=== PATIENT | female | born 1950 | race Caucasian/White ===

== ENCOUNTER 2016-06-03 08:10 | Emergency (ER) | payer MEDICARE, OTHER ==
[~2016-06-03] VITALS: Ht 162.6 cm; Wt 53.5 kg
--- NOTE | 2016-06-03 09:05 | RAD ---
Exam performed: X-ray right knee and right ankle. History: Patient twisted knee while getting out of the truck today. Date of service: . Comparison: X-rays standing AP bilateral knees from 06/29/14 3 views right knee findings: There is probable mild depression of the lateral tibial left to with narrowing of the lateral tibiofemoral joint. There is also narrowing of the patellofemoral joint with arthritic spurring. There is mild soft tissue swelling. Small joint effusion. Impression: 1. Mild narrowing of the lateral tibiofemoral joint with mild depression of the lateral tibial plateau. The acuity of these findings is not clear and could be related to chronic changes. Correlate with patient's symptoms and if indicated evaluation with CT or MRI of the right knee may be of additional benefit to rule out acute fracture. End impression. Right ankle 3 views findings: Normal alignment of the ankle mortise is preserved. There is no acute fracture or dislocation. No soft tissue swelling or joint effusion seen. Impression: 1. No acute abnormality seen in the right ankle.
[2016-06-03 10:05] VITALS: BP 135/63
[2016-06-03] MEDS ORDERED: DIPHTH,PERTUSS(ACELL),TET TOX 0.5 ML DISP.SYRIN. VAX IM ONE (10:15)
--- NOTE | 2016-06-03 10:20 | PHYS DOC ---
Past Medical History Past Medical History: Arthritis, High Cholesterol, Hypertension Past Surgical History: Hysterectomy, Other Additional Past Surgical Histo: PHILOMENA FOOT SX, R ROTATOR CUFF SX Alcohol Use: None Drug Use: None Adult General Chief Complaint Chief Complaint: MECHANICAL FALL HPI HPI Patient is a 66 year old female presents emergency department stating that she went to get out of the truck today when she twisted her right knee. She states that she has increased pain and discomfort when she tries to stand on the right leg. Patient states that she does have nerve damage. She does have good peripheral pulses are 2+ bilaterally. Patient does have good sensation noted. Patient does have increased tenderness and pain along the lateral and along the anterior portion of the the knee. There is no bruising or discoloration noted. Patient does have a abrasion noted on her right hand. Patient is unsure when her last tetanus immunization occurred. Review of Systems Review of Systems Constitutional: Denies fever or chills [] Eyes: Denies change in visual acuity, redness, or eye pain [] HENT: Denies nasal congestion or sore throat [] Respiratory: Denies cough or shortness of breath [] Cardiovascular: No additional information not addressed in HPI [] GI: Denies abdominal pain, nausea, vomiting, bloody stools or diarrhea [] : Denies dysuria or hematuria [] Musculoskeletal: Denies back pain. Right knee pain and discomfort Integument: Denies rash or skin lesions. abrasion to right hand[] Neurologic: Denies headache, focal weakness or sensory changes [] Physical Exam Physical Exam Constitutional: Well developed, well nourished, no acute distress, non-toxic appearance. [] HENT: Normocephalic, atraumatic, bilateral external ears normal, oropharynx moist, no oral exudates, nose normal. [] Eyes: PERRLA, EOMI, conjunctiva normal, no discharge. [] Neck: Normal range of motion, no tenderness, supple, no stridor. [] Cardiovascular:Heart rate regular rhythm Lungs & Thorax: no respiratory distress noted Skin: Warm, dry, no erythema, no rash. Abrasion noted to right hand Extremities: Right knee tenderness noted on the lateral side of the knee and anterior area just below the knee, no cyanosis, no clubbing, ROM intact, no edema. No bruising or discoloration noted. Patient with increased discomfort when trying to straighten the leg. Peripheral pulses are 2+ cap refill brisk less than 2 seconds. Neurologic: Alert and oriented X 3, normal motor function, normal sensory function, no focal deficits noted. [] Psychologic: Affect normal, judgement normal, mood normal. [] Current Patient Data Vital Signs Vital Signs Date Time Temp Pulse Resp B/P Pulse Ox O2 Delivery O2 Flow Rate FiO2 06/03/16 10:05 98.0 100 16 95 Room Air 98.0 EKG EKG [] Radiology/Procedures Radiology/Procedures [][facility] [address] [place] [address] IMAGING REPORT Signed PATIENT: JENNIFER PACE ACCOUNT: [id number] : 1950 LOCATION: ER AGE: 66 SEX: F EXAM [id number] STATUS: REG ER ORD. PHYSICIAN: VEENA CALL NP REASON: twisted knee and lower leg getting out of truck today PROCEDURE: ANKLE RIGHT 3V; KNEE RIGHT 3V Exam performed: X-ray right knee and right ankle. History: Patient twisted knee while getting out of the truck today. Date of service: . Comparison: X-rays standing AP bilateral knees from 06/29/14 3 views right knee findings: There is probable mild depression of the lateral tibial left to with narrowing of the lateral tibiofemoral joint. There is also narrowing of the patellofemoral joint with arthritic spurring. There is mild soft tissue swelling. Small joint effusion. Impression: 1. Mild narrowing of the lateral tibiofemoral joint with mild depression of the lateral tibial plateau. The acuity of these findings is not clear and could be related to chronic changes. Correlate with patient's symptoms and if indicated evaluation with CT or MRI of the right knee may be of additional benefit to rule out acute fracture. End impression. Right ankle 3 views findings: Normal alignment of the ankle mortise is preserved. There is no acute fracture or dislocation. No soft tissue swelling or joint effusion seen. Impression: 1. No acute abnormality seen in the right ankle. DICTATED and SIGNED BY: MARIA EUGENIA ÁLVAREZ MD DATE: 06/03/16 0856 CC: VEENA CALL NP; SEDRICK CLEMONS MD ~ Course & Med Decision Making Course & Med Decision Making Pertinent Labs and Imaging studies reviewed. (See chart for details) X-ray was negative for ankle abnormality. X-ray for the knee shows mild narrowing of the lateral tibiofemoral joint with mild depression of the lateral tibial plateau. The acuity of these findings are not clear according to the radiologist and could be related to chronic changes only do recommend a CT or an MRI of the right knee for additional benefits to rule out fracture. Patient will be placed in a knee immobilizer. Follow-up with orthopedic. Patient states that once we had straighten her knee on she was able to put her foot on the ground she states the pain decreased. Patient was recommended to take ibuprofen [id number] for pain and discomfort ice packs on 20 minutes off 20 minutes several times a day. She'll be provided with Dr. Parker's name and number to follow up with. Signs and symptoms to return back to emergency department as been provided. [] Dragon Disclaimer Dragon Disclaimer This electronic medical record was generated, in whole or in part, using a voice recognition dictation system. Departure Departure Impression: Primary Impression: Knee pain, right Additional Impression: Abrasion of right hand Disposition: 01 HOME, SELF-CARE Condition: STABLE Referrals: SEDRICK CLEMONS MD (PCP) MICKY MERLOS II, MD Patient Instructions: Abrasion, [id number], Knee Immobilizer, [id number], Knee Pain, [id number] Additional Instructions: Activity as tolerated. Wear the knee immobilizer whenever you are up ambulating. Ice packs on 20 minutes off 20 minutes several times a day. Elevation as much as possible. Tylenol or ibuprofen for pain and discomfort. Follow-up with orthopedic within the next week. Return to the emergency department sign symptoms of become worse. Problem Qualifiers VEENA CALL NP Jun 03, 2016 10:20
[2016-06-03] MEDS ORDERED: AMLO5TAB2 PO (19:29)
[2016-06-03] MEDS ORDERED: PRAV40TA2 PO (19:29)
[2016-06-03] MEDS ORDERED: LISI10TA2 PO (19:29)
[2016-06-03] MEDS ORDERED: ZOLP5TAB PO (19:29)
== END 2016-06-03 10:55 | disposition home or self-care (01) ==
LOC: ER 08:10
DX: S60.511A Abrasion of right hand, initial encounter (principal); M25.561 Pain in right knee; M19.90 Unspecified osteoarthritis, unspecified site; E78.00 Pure hypercholesterolemia, unspecified; I10 Essential (primary) hypertension; Z90.710 Acquired absence of both cervix and uterus; X58.XXXA Exposure to other specified factors, initial encounter; Y93.89 Activity, other specified; Y92.89 Other specified places as the place of occurrence of the external cause; Y99.8 Other external cause status
CPT/HCPCS: 29505; 73562; 73610; 90471; 90715; 99284-25

== ENCOUNTER 2016-06-03 12:21 | Inpatient (IN) | payer MEDICARE, OTHER ==
[~2016-06-03] VITALS: Ht 162.6 cm; Wt 49.9 kg
--- NOTE | 2016-06-03 13:25 | PHYS DOC ---
Past Medical History Past Medical History: Arthritis, High Cholesterol, Hypertension Past Surgical History: Hysterectomy, Other Additional Past Surgical Histo: PHILOMENA FOOT SX, R ROTATOR CUFF SX Alcohol Use: None Drug Use: None Adult General Chief Complaint Chief Complaint: DIZZY/LIGHT HEADED [facility] HPI Patient is a 66 year old female who presents by EMS for her presyncopal event. She was trying to get out of car after leaving the emergency department. She moved her right leg and had an episode of severe pain. This was followed by nausea, lightheadedness, and full body flush sensation. This resolves shortly. Her friend called EMS to bring her back to the hospital. She was seen this morning for right knee pain with suspected tibial plateau fracture. At that time , her pain was controlled and she wanted to go home. She now feels this was ambitious. She denies chest pain, numbness, tingling, focal weakness. Review of Systems Review of Systems Constitutional: Denies fever or chills [] Eyes: Denies change in visual acuity, redness, or eye pain [] HENT: Denies nasal congestion or sore throat [] Respiratory: Denies cough or shortness of breath [] Cardiovascular: No additional information not addressed in HPI [] GI: Denies abdominal pain, nausea, vomiting, bloody stools or diarrhea [] : Denies dysuria or hematuria [] Musculoskeletal: Denies back pain [] Integument: Denies rash or skin lesions [] Neurologic: Denies headache, focal weakness or sensory changes [] Endocrine: Denies polyuria or polydipsia [] Allergies Allergies Allergies Coded Allergies Type Severity Reaction Last Updated Verified No Known Drug Allergies 06/03/16 No Physical Exam Physical Exam Constitutional: Well developed, well nourished, no acute distress, non-toxic appearance. [] HENT: Normocephalic, atraumatic, bilateral external ears normal, oropharynx moist, no oral exudates, nose normal. [] Eyes: PERRLA, EOMI. [] Neck: Normal range of motion, supple. [] Cardiovascular:Heart rate regular rhythm [] Lungs & Thorax: Bilateral breath sounds clear to auscultation [] Abdomen: Bowel sounds normal, soft, no tenderness. [] Skin: Warm, dry, no erythema, no rash. [] Back: Normal range of motion. [] Extremities: No obvious deformity or discoloration; has tenderness to lateral knee with no palpable abnormality; Able to flex/ex/IR/ER hip, knee rom not tested due to pain and suspected fracture, ankle df/pf, toes df/pf; sensation intact to light touch; dp pulses equal bilaterally Neurologic: Alert and oriented X 3, normal motor function, normal sensory function, no focal deficits noted. [] Psychologic: Affect normal, judgement normal, mood normal. [] Current Patient Data Vital Signs Vital Signs Date Time Temp Pulse Resp B/P Pulse Ox O2 Delivery O2 Flow Rate FiO2 06/03/16 12:25 97.8 95 18 141/61 96 Room Air 97.8 EKG EKG EKG as interpreted by me as normal sinus rhythm, rate 89, no ST-T changes, normal intervals, no ectopy Course & Med Decision Making Course & Med Decision Making Pertinent Labs and Imaging studies reviewed. (See chart for details) She is unable to ambulate under her own power and is found to have right lateral tibial plateau fracture. Will admit for further workup. Discussed case with Dr. Jacob, who recommends orthopedic consult for fracture and cardiology consult for presyncope. Dragon Disclaimer Dragon Disclaimer This electronic medical record was generated, in whole or in part, using a voice recognition dictation system. Departure Departure Impression: Primary Impression: Closed fracture of right tibial plateau Disposition: ADMITTED INPATIENT Condition: STABLE Referrals: SEDRICK JACOB MD (PCP) Problem Qualifiers Primary Impression: Closed fracture of right tibial plateau Encounter type: initial encounter Qualified Code: S82.141A - Displaced bicondylar fracture of right tibia, initial encounter for closed fracture Jose Roberto PAIGE MD Jun 03, 2016 13:24
[2016-06-03 13:53] LABS: BASO # 0.1 x10^3/uL (0.0-0.2); BASO % 1 % (0-3); EOS % 0 % (0-3); HEMATOCRIT 40.1 % (36.0-47.0); HEMOGLOBIN 13.6 g/dL (12.0-15.5); LYMPH # 1.2 x10^3/uL (1.0-4.8); LYMPH % 7 % (24-48); MEAN CORPUSCULAR HEMOGLOBIN 33 pg (25-35); MEAN CORPUSCULAR HGB CONC 34 g/dL (31-37); MEAN CORPUSCULAR VOLUME 98 fL (79-100); MONO % 7 % (0-9); NEUT % 85 % (31-73); PLATELET COUNT 175 x10^3/uL (140-400); WHITE BLOOD COUNT 16.4 x10^3/uL (4.0-11.0)
--- NOTE | 2016-06-03 14:22 | RAD ---
Exam performed: CT left knee. History: Left knee pain and inability to bear weight status post fall 2 days ago. Date of service: 06/03/16. Comparison: None available Technique: Contiguous helical acquisitions are obtained through the right knee without IV contrast. Sagittal and coronal reformatted images are obtained and reviewed. Findings: There is a comminuted depressed fracture lateral tibial plateau. Spiking of the tibial spines is seen. The medial tibiofemoral joint is preserved. There is osteophytic spurring emanating from the articular surface of the patella with mild narrowing of the patellofemoral joint small joint effusion. No foreign body. No intramuscular hematoma or soft tissue swelling is identified. Impression: 1. Comminuted intra-articular fracture lateral tibial plateau with soft tissue swelling and a small joint effusion. PQRS Compliance Statement: One or more of the following individualized dose reduction techniques were utilized for this examination: 1. Automated exposure control 2. Adjustment of the mA and/or kV according to patient size 3. Use of iterative reconstruction technique
[2016-06-03] MEDS ORDERED: ACETAMINOPHEN 325 MG TABLET. PO PRN ×2 (14:30→17:30)
[2016-06-03 14:38] LABS: CALCIUM 9.9 mg/dL (8.5-10.1); CREATININE 0.8 mg/dL (0.6-1.0); GFR 71.5; POTASSIUM 4.8 mmol/L (3.5-5.1)
--- NOTE | 2016-06-03 14:58 | EKG ---
[facility] [address] [place] [address] Test Date: 2016-06-03 Test Time: 13:36:21 Pat Name: JENNIFER PACE Department: Room: 404 Gender: F Damper Maker: : 1950 Requested By: Jose Roberto PAIGE Order Number: [id number] Reading MD: Meño Gresham Measurements Intervals [place] Rate: 89 P: 45 CA: 146 QRS: 77 QRSD: 80 T: 67 QT: 344 QTc: 420 Interpretive Statements SINUS RHYTHM MILD NONSPECIFIC ST-T WAVE CHANGES. Electronically Signed On 06-10-2016 10:34:33 [employer] DIRECTOR by Meño Gresham
--- NOTE | 2016-06-03 15:16 | PDOC ---
ORTHO PROGRESS NOTES Vitals Vital Signs Date Time Temp Pulse Resp B/P Pulse Ox O2 Delivery O2 Flow Rate FiO2 06/03/16 13:34 102 157/80 06/03/16 13:22 30 95 Room Air 06/03/16 12:25 97.8 97.8 Labs Laboratory Tests Test 06/03/16 13:45 06/03/16 14:10 White Blood Count 16.4x10^3/uL (4.0-11.0) Red Blood Count 4.10x10^6/uL (3.50-5.40) Hemoglobin 13.6g/dL (12.0-15.5) Hematocrit 40.1% (36.0-47.0) Mean Corpuscular Volume 98fL (79-100) Mean Corpuscular Hemoglobin 33pg (25-35) Mean Corpuscular Hemoglobin Concent 34g/dL (31-37) Red Cell Distribution Width 14.0% (11.5-14.5) Platelet Count 175x10^3/uL (140-400) Neutrophils (%) (Auto) 85% (31-73) Lymphocytes (%) (Auto) 7% (24-48) Monocytes (%) (Auto) 7% (0-9) Eosinophils (%) (Auto) 0% (0-3) Basophils (%) (Auto) 1% (0-3) Neutrophils # (Auto) 13.9x10^3uL (1.8-7.7) Lymphocytes # (Auto) 1.2x10^3/uL (1.0-4.8) Monocytes # (Auto) 1.2x10^3/uL (0.0-1.1) Eosinophils # (Auto) 0.0x10^3/uL (0.0-0.7) Basophils # (Auto) 0.1x10^3/uL (0.0-0.2) Sodium Level 143mmol/L (136-145) Potassium Level 4.8mmol/L (3.5-5.1) Chloride Level 106mmol/L (98-107) Carbon Dioxide Level 28mmol/L (21-32) Anion Gap 9 (6-14) Blood Urea Nitrogen 11mg/dL (7-20) Creatinine 0.8mg/dL (0.6-1.0) Estimated GFR (Cockcroft-Gault) 71.5 Glucose Level 135mg/dL (70-99) Calcium Level 9.9mg/dL (8.5-10.1) Laboratory Tests Test 06/03/16 13:45 06/03/16 14:10 White Blood Count 16.4x10^3/uL (4.0-11.0) Red Blood Count 4.10x10^6/uL (3.50-5.40) Hemoglobin 13.6g/dL (12.0-15.5) Hematocrit 40.1% (36.0-47.0) Mean Corpuscular Volume 98fL (79-100) Mean Corpuscular Hemoglobin 33pg (25-35) Mean Corpuscular Hemoglobin Concent 34g/dL (31-37) Red Cell Distribution Width 14.0% (11.5-14.5) Platelet Count 175x10^3/uL (140-400) Neutrophils (%) (Auto) 85% (31-73) Lymphocytes (%) (Auto) 7% (24-48) Monocytes (%) (Auto) 7% (0-9) Eosinophils (%) (Auto) 0% (0-3) Basophils (%) (Auto) 1% (0-3) Neutrophils # (Auto) 13.9x10^3uL (1.8-7.7) Lymphocytes # (Auto) 1.2x10^3/uL (1.0-4.8) Monocytes # (Auto) 1.2x10^3/uL (0.0-1.1) Eosinophils # (Auto) 0.0x10^3/uL (0.0-0.7) Basophils # (Auto) 0.1x10^3/uL (0.0-0.2) Sodium Level 143mmol/L (136-145) Potassium Level 4.8mmol/L (3.5-5.1) Chloride Level 106mmol/L (98-107) Carbon Dioxide Level 28mmol/L (21-32) Anion Gap 9 (6-14) Blood Urea Nitrogen 11mg/dL (7-20) Creatinine 0.8mg/dL (0.6-1.0) Estimated GFR (Cockcroft-Gault) 71.5 Glucose Level 135mg/dL (70-99) Calcium Level 9.9mg/dL (8.5-10.1) Assessment and Plan note dictated MICKY MERLOS II, MD Jun 03, 2016 15:16
[2016-06-03] MEDS: FENTANYL PF 100 MCG/2 ML VIAL. IV PRN ×2 (16:31→19:27)
[2016-06-03 17:07] LABS: HYPOCHROMIA SLIGHT; OVALOCYTES OCC; PLT ESTIMATE ADEQUATE (ADEQUATE); POLYCHROMASIA SLIGHT
[2016-06-03] MEDS ORDERED: MAGNESIUM HYDROXIDE 2,400 MG/30 ML ORAL.SUSP. PO PRN (17:30)
[2016-06-03] MEDS ORDERED: FENTANYL PF 100 MCG/2 ML VIAL. IM PRN (17:30)
--- NOTE | 2016-06-03 17:37 | PDOC ---
Provider Note Provider Note history and physical dictated # [id number] SEDRICK CLEMONS MD Jun 03, 2016 17:36
[2016-06-03] MEDS: HYDROCODONE/APAP 5/325MG TABLET. PO PRN (17:47)
[2016-06-03] MEDS ORDERED: ENOXAPARIN 40 MG/0.4 ML DISP.SYRIN. SQ ONE (18:00)
[2016-06-03 19:10] VITALS: BP 174/74
[2016-06-03] MEDS ORDERED: ZOLP5TAB PO (19:29)
[2016-06-03] MEDS ORDERED: PRAV40TA2 PO (19:29)
[2016-06-03] MEDS ORDERED: LISI10TA2 PO (19:29)
[2016-06-03] MEDS ORDERED: AMLO5TAB2 PO (19:29)
--- NOTE | 2016-06-03 19:34 | HP ---
ADMIT DATE: 06/03/2016 The patient is in room 404. HISTORY OF PRESENT ILLNESS: The patient is a 66-year-old white female with history of hypertension, hyperlipidemia, peripheral arterial disease, who was getting out of the truck earlier today and had noted a twisting in her left leg and developed pain in her left knee area and sought help at the [facility] Emergency Room this morning where she was felt to have a suspected left tibial plateau fracture. Her leg apparently was splinted and she was sent home and she was getting out of the car at home, she again hurt her neck and felt very flushed and dizzy and lightheaded for a period of time and eventually resolved. She then went back to the [facility] Emergency Room where she had a CAT scan of the left leg, which showed that she had a comminuted intraarticular fracture involving the lateral tibial plateau with soft tissue swelling and a small joint effusion. The patient was subsequently admitted to the hospital for further evaluation. She did have an EKG done. She is presently eating dinner and she did receive some IV fentanyl, which helped with her knee pain. She is presently comfortable. She denies any chest pain or shortness of breath. She is therefore admitted for further evaluation of her left knee fracture and also a near syncopal episode. When she got out of the truck initially, she twisted her left knee and actually fell down. ALLERGIES AND INTOLERANCES: Sertraline caused tremors. Wellbutrin caused confusion. Simvastatin caused myalgias. MEDICATIONS: Prior to admission include amlodipine 5 mg every day, lisinopril 10 mg every day, aspirin 325 mg every day, pravastatin 40 mg every day. PAST MEDICAL HISTORY: Significant for hypertension, hyperlipidemia, peripheral arterial disease. She was seen by vascular surgeon, Dr. Roach couple of months ago and was treated medically. She was encouraged to quit smoking cigarettes. She has a history of sinus tachycardia. She has had a benign right breast biopsy, left rotator cuff repair in 2008, hysterectomy and bilateral salpingo-oophorectomy for an ovarian cyst. SOCIAL HISTORY: She does not drink alcohol. Smokes about 5 cigarettes a day. She is retired, . FAMILY HISTORY: Remarkable that her father had pancreatic cancer. Mother had alcoholism. REVIEW OF SYSTEMS: GENERAL: There has been no fever, chills or sweats in the last 3 days. CARDIOVASCULAR: No chest pain. PULMONARY: No cough or shortness of breath. GASTROINTESTINAL: She had some loose stools. ENDOCRINE: No diabetes mellitus. SKIN: No rashes. The rest of systems reviewed are negative except as stated in history of present illness. PHYSICAL EXAMINATION: VITAL SIGNS: Temperature 97.8 degrees, apical pulse 102, respiratory rate is 20, blood pressure 157/80. Oxygen saturation 95% on room air. HEENT: Eyes: Gaze is conjugate. Mouth: Tongue is midline. NECK: There is no cervical lymphadenopathy or thyroid enlargement. HEART: Reveals an S1, S2. There is no S3 or murmur. LUNGS: Clear with decreased breath sounds bilaterally. ABDOMEN: Soft, nontender. EXTREMITIES: Lower extremities, she has got a splint in the right lower extremity. SKIN: No rashes. Examination of her right foot, I cannot appreciate any ulcers, but there is no gangrene. NEUROLOGIC: She is coherent. 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 Right leg is in a splint. She did receive a dose of Lovenox in the Emergency Room earlier today. LABORATORY DATA: Sodium 143, potassium 4.8, chloride 106, total CO2 of 28 with a BUN of 11, creatinine 0.8, blood sugar 135, nonfasting with a white count is 16.4, hemoglobin 13.6, platelet count 175,000, lymphocytes. ASSESSMENT: 1. Left tibial plateau fracture. 2. Near syncopal episode, most likely due to vasovagal reaction. 3. Hypertension. 4. Hyperlipidemia. 5. Peripheral arterial disease. 6. Leukocytosis. PLAN: At this time is to consult Dr. Oswald who has seen the patient already although his dictation is not on the chart at this point and we will continue with the splinting of the left leg. We will also recheck her CBC in the morning. We will resume her amlodipine, lisinopril and aspirin and obtain a consult with Dr. Yao for Cardiology. Repeat the CBC in the morning ordered echocardiogram, chest x-ray, protime and INR and CMP for tomorrow also. SEDRICK CLEMONS MD DR: FLEX/amanda JOB#: [id number] / [id number]
--- NOTE | 2016-06-03 19:56 | PDOC2 ---
CONSULT Date of Consult Date of Consult DATE: 06/03/16 TIME: 19:47 Reason for Consult Reason for Consult: Near syncope Referring Physician Referring Physician: Dr. Jacob Identification/Chief Complaint Chief Complaint Leg fracture History of Present Illness Reason for Visit: This patient is a 66-year-old lady that has a known history of hypertension, hyperlipidemia, peripheral vascular disease, and COPD. She is a current smoker. The patient had an injury to the right knee and came to the emergency room and after she was seen and evaluated and was felt that she may have a tibial plateau fracture but the patient did not want to stay in the hospital and a brace was placed on the leg and she went home when she arrived home as she tried to turn her leg to get out of the car she felt very hot and sweaty short of breath and lightheaded with extreme pain. Because of that she was brought back to the emergency room which she was seen and evaluated and he was decided to admit her. The patient agrees with this approach at this time. At the time that I saw her she was complaining of pain to the knee denies any dyspnea, denies any palpitations, denies any chest pains. The patient denies having any previous cardiac problems. She denies loss of consciousness but stated that with the pain she felt quite lightheaded but that she did not pass out. Past Medical History Cardiovascular: HTN, Hyperlipidemia, Other (peripheral vascular disease) Pulmonary: COPD GI: GERD Current Problem List Problem List Problems Medical Problems: (1) Closed fracture of right tibial plateau Status: Acute (2) Knee pain, right Status: Acute (3) Right knee pain Status: Acute Current Medications Current Medications Current Medications Fentanyl Citrate (Fentanyl 2ml Vial) 50 mcg PRN Q2HR PRN IV PAIN Last administered on 06/03/16 19:27; Start 06/03/16 at 14:30; Stop 06/04/16 at 14:29 Acetaminophen (Tylenol) 650 mg PRN Q4HRS PRN PO FEVER; Start 06/03/16 at 14:30 ; Stop 06/04/16 at 14:29 Enoxaparin Sodium (Lovenox 40mg Syringe) 40 mg 1X ONCE SQ Last administered on 06/03/16 17:47; Start 06/03/16 at 18:00; Stop 06/03/16 at 18:01; Status DC Fentanyl Citrate (Fentanyl 2ml Vial) 50 mcg Q4HRS PRN IM SEVERE PAIN; Start at 17:30 Acetaminophen/ Hydrocodone Bitart (Lortab 5/325) 1 tab PRN Q4HRS PRN PO PAIN Last administered on 06/03/16t 17:47; Start 06/03/16 at 17:30 Magnesium Hydroxide (Milk Of Magnesia) 2,400 mg PRN DAILY PRN PO CONSTIPATION; Start 06/03/16 at 17:30 Amlodipine Besylate (Norvasc) 5 mg DAILY PO ; Start 06/04/16 at 09:00 Lisinopril (Prinivil) 10 mg DAILY PO ; Start 06/04/16 at 09:00 Acetaminophen (Tylenol) 650 mg Q4HRS PRN PO MILD PAIN / TEMP; Start 06/03/16 at 17:30 Aspirin (Elis Aspirin) 325 mg DAILYWBKFT PO ; Start 06/04/16 at 08:00 Zolpidem Tartrate (Ambien) 5 mg PRN QHS PRN PO INSOMNIA; Start 06/03/16 at 17: 45 Active Scripts Active Reported Ambien (Zolpidem Tartrate) 5 Mg Tablet 1 Tab PO PRN QHS PRN Lisinopril 10 Mg Tablet 10 Mg PO HS Amlodipine Besylate 5 Mg Tablet 5 Mg PO HS Pravastatin Sodium 40 Mg Tablet 40 Mg PO HS Allergies Allergies: Coded Allergies: No Known Drug Allergies (Unverified , 06/03/16) Physical Exam Physical Exam The patient was in mild distress at the time of the examination and she was complaining of pain to the knee. H EENT pupils are reactive. Oral mucosa well-hydrated. Neck is supple no JVD. Lungs are clear. Heart regular rate and rhythm normal S1 normal S2 no S3 no S4 no rubs no clicks no murmurs. Abdomen is soft bowel sounds are present. Extremities brace present on the right leg. No edema. Vitals VITALS Vital Signs Date Time Temp Pulse Resp B/P Pulse Ox O2 Delivery O2 Flow Rate FiO2 06/03/16 19:27 95 Room Air 06/03/16 13:34 102 157/80 06/03/16 13:22 30 06/03/16 12:25 97.8 97.8 Labs Labs Laboratory Tests Test 06/03/16 13:45 2/27/17 14:10 White Blood Count 16.4x10^3/uL (4.0-11.0) Red Blood Count 4.10x10^6/uL (3.50-5.40) Hemoglobin 13.6g/dL (12.0-15.5) Hematocrit 40.1% (36.0-47.0) Mean Corpuscular Volume 98fL (79-100) Mean Corpuscular Hemoglobin 33pg (25-35) Mean Corpuscular Hemoglobin Concent 34g/dL (31-37) Red Cell Distribution Width 14.0% (11.5-14.5) Platelet Count 175x10^3/uL (140-400) Neutrophils (%) (Auto) 85% (31-73) Lymphocytes (%) (Auto) 7% (24-48) Monocytes (%) (Auto) 7% (0-9) Eosinophils (%) (Auto) 0% (0-3) Basophils (%) (Auto) 1% (0-3) Neutrophils # (Auto) 13.9x10^3uL (1.8-7.7) Lymphocytes # (Auto) 1.2x10^3/uL (1.0-4.8) Monocytes # (Auto) 1.2x10^3/uL (0.0-1.1) Eosinophils # (Auto) 0.0x10^3/uL (0.0-0.7) Basophils # (Auto) 0.1x10^3/uL (0.0-0.2) Segmented Neutrophils % 89% (35-66) Lymphocytes % 3% (24-48) Monocytes % 8% (0-10) Platelet Estimate Adequate (ADEQUATE) Large Platelets Occ Polychromasia Slight Hypochromasia Slight Ovalocytes Occ Sodium Level 143mmol/L (136-145) Potassium Level 4.8mmol/L (3.5-5.1) Chloride Level 106mmol/L (98-107) Carbon Dioxide Level 28mmol/L (21-32) Anion Gap 9 (6-14) Blood Urea Nitrogen 11mg/dL (7-20) Creatinine 0.8mg/dL (0.6-1.0) Estimated GFR (Cockcroft-Gault) 71.5 Glucose Level 135mg/dL (70-99) Calcium Level 9.9mg/dL (8.5-10.1) Laboratory Tests Test 06/03/16 13:45 06/03/16 14:10 White Blood Count 16.4x10^3/uL (4.0-11.0) Red Blood Count 4.10x10^6/uL (3.50-5.40) Hemoglobin 13.6g/dL (12.0-15.5) Hematocrit 40.1% (36.0-47.0) Mean Corpuscular Volume 98fL (79-100) Mean Corpuscular Hemoglobin 33pg (25-35) Mean Corpuscular Hemoglobin Concent 34g/dL (31-37) Red Cell Distribution Width 14.0% (11.5-14.5) Platelet Count 175x10^3/uL (140-400) Neutrophils (%) (Auto) 85% (31-73) Lymphocytes (%) (Auto) 7% (24-48) Monocytes (%) (Auto) 7% (0-9) Eosinophils (%) (Auto) 0% (0-3) Basophils (%) (Auto) 1% (0-3) Neutrophils # (Auto) 13.9x10^3uL (1.8-7.7) Lymphocytes # (Auto) 1.2x10^3/uL (1.0-4.8) Monocytes # (Auto) 1.2x10^3/uL (0.0-1.1) Eosinophils # (Auto) 0.0x10^3/uL (0.0-0.7) Basophils # (Auto) 0.1x10^3/uL (0.0-0.2) Segmented Neutrophils % 89% (35-66) Lymphocytes % 3% (24-48) Monocytes % 8% (0-10) Platelet Estimate Adequate (ADEQUATE) Large Platelets Occ Polychromasia Slight Hypochromasia Slight Ovalocytes Occ Sodium Level 143mmol/L (136-145) Potassium Level 4.8mmol/L (3.5-5.1) Chloride Level 106mmol/L (98-107) Carbon Dioxide Level 28mmol/L (21-32) Anion Gap 9 (6-14) Blood Urea Nitrogen 11mg/dL (7-20) Creatinine 0.8mg/dL (0.6-1.0) Estimated GFR (Cockcroft-Gault) 71.5 Glucose Level 135mg/dL (70-99) Calcium Level 9.9mg/dL (8.5-10.1) Assessment/Plan Assessment/Plan This patient comes in with a tibial plateau fracture and had an episode of near syncope that most likely is secondary to extreme pain. She has risk factors for coronary artery disease but has no previous history of heart problems. From a cardiac standpoint I would like to monitor her. We will wait to see what the orthopedic service wants to do with regards to the fracture. If she is going to require surgery may need to get an echocardiogram to evaluate the left ventricular function to clear her for surgery. Thank you very much for asking me to participate in the care of this patient. KIRSTIE SOTO MD Jun 03, 2016 19:56
[2016-06-03] MEDS ORDERED: CYCLOBENZAPRINE 10 MG TABLET. PO PRN (20:15)
[2016-06-03] MEDS: ZOLPIDEM 5 MG TABLET. PO PRN (20:49)
[2016-06-03 23:10] VITALS: BP 139/76
[2016-06-04] MEDS: FENTANYL PF 100 MCG/2 ML VIAL. IV PRN ×2 (01:03→03:16)
[2016-06-04] MEDS: HYDROCODONE/APAP 5/325MG TABLET. PO PRN ×4 (02:43→20:23)
[2016-06-04 03:10] VITALS: BP 129/57
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
[2016-06-04 05:11] LABS: BASO # 0.1 x10^3/uL (0.0-0.2); BASO % 1 % (0-3); EOS % 0 % (0-3); HEMOGLOBIN 13.1 g/dL (12.0-15.5); LYMPH # 1.9 x10^3/uL (1.0-4.8); LYMPH % 17 % (24-48); MEAN CORPUSCULAR HEMOGLOBIN 32 pg (25-35); MEAN CORPUSCULAR HGB CONC 33 g/dL (31-37); MEAN CORPUSCULAR VOLUME 98 fL (79-100); MONO % 11 % (0-9); NEUT % 71 % (31-73); PLATELET COUNT 207 x10^3/uL (140-400); RED BLOOD COUNT 4.08 x10^6/uL (3.50-5.40); RED CELL DISTRIBUTION WIDTH 13.8 % (11.5-14.5)
[2016-06-04 05:23] LABS: PROTHROMBIN TIME PATIENT 12.8 SEC (11.7-14.0)
[2016-06-04 05:41] LABS: ALBUMIN 3.8 g/dL (3.4-5.0); ALBUMIN/GLOBULIN RATIO 1.1 (1.0-1.7); CREATININE 0.8 mg/dL (0.6-1.0); GFR 71.5; POTASSIUM 4.1 mmol/L (3.5-5.1); TOTAL BILIRUBIN 0.5 mg/dL (0.2-1.0); TOTAL PROTEIN 7.2 g/dL (6.4-8.2)
[2016-06-04 07:00] VITALS: BP 140/61
--- NOTE | 2016-06-04 07:48 | RAD ---
Portable chest, 06/03/2016: History: Preop evaluation, hypertension The heart size and pulmonary vascularity are normal. There are granulomatous calcifications in the left upper chest. No acute infiltrate is seen. There is no evidence of pleural fluid. IMPRESSION: No acute cardiopulmonary abnormality is detected.
--- NOTE | 2016-06-04 08:23 | PDOC ---
ORTHO PROGRESS NOTES Subjective c/o R knee pain. No new pain Vitals Vital Signs Date Time Temp Pulse Resp B/P Pulse Ox O2 Delivery O2 Flow Rate FiO2 06/04/16 03:31 16 90 Room Air 06/04/16 03:10 98.4 106 129/57 98.4 Labs Laboratory Tests Test 06/03/16 13:45 06/03/16 14:10 06/04/16 04:12 White Blood Count 16.4x10^3/uL (4.0-11.0) 11.0x10^3/uL (4.0-11.0) Red Blood Count 4.10x10^6/uL (3.50-5.40) 4.08x10^6/uL (3.50-5.40) Hemoglobin 13.6g/dL (12.0-15.5) 13.1g/dL (12.0-15.5) Hematocrit 40.1% (36.0-47.0) 40.0% (36.0-47.0) Mean Corpuscular Volume 98fL (79-100) 98fL (79-100) Mean Corpuscular Hemoglobin 33pg (25-35) 32pg (25-35) Mean Corpuscular Hemoglobin Concent 34g/dL (31-37) 33g/dL (31-37) Red Cell Distribution Width 14.0% (11.5-14.5) 13.8% (11.5-14.5) Platelet Count 175x10^3/uL (140-400) 207x10^3/uL (140-400) Neutrophils (%) (Auto) 85% (31-73) 71% (31-73) Lymphocytes (%) (Auto) 7% (24-48) 17% (24-48) Monocytes (%) (Auto) 7% (0-9) 11% (0-9) Eosinophils (%) (Auto) 0% (0-3) 0% (0-3) Basophils (%) (Auto) 1% (0-3) 1% (0-3) Neutrophils # (Auto) 13.9x10^3uL (1.8-7.7) 7.9x10^3uL (1.8-7.7) Lymphocytes # (Auto) 1.2x10^3/uL (1.0-4.8) 1.9x10^3/uL (1.0-4.8) Monocytes # (Auto) 1.2x10^3/uL (0.0-1.1) 1.2x10^3/uL (0.0-1.1) Eosinophils # (Auto) 0.0x10^3/uL (0.0-0.7) 0.0x10^3/uL (0.0-0.7) Basophils # (Auto) 0.1x10^3/uL (0.0-0.2) 0.1x10^3/uL (0.0-0.2) Segmented Neutrophils % 89% (35-66) Lymphocytes % 3% (24-48) Monocytes % 8% (0-10) Platelet Estimate Adequate (ADEQUATE) Large Platelets Occ Polychromasia Slight Hypochromasia Slight Ovalocytes Occ Sodium Level 143mmol/L (136-145) 144mmol/L (136-145) Potassium Level 4.8mmol/L (3.5-5.1) 4.1mmol/L (3.5-5.1) Chloride Level 106mmol/L (98-107) 107mmol/L (98-107) Carbon Dioxide Level 28mmol/L (21-32) 27mmol/L (21-32) Anion Gap 9 (6-14) 10 (6-14) Blood Urea Nitrogen 11mg/dL (7-20) 12mg/dL (7-20) Creatinine 0.8mg/dL (0.6-1.0) 0.8mg/dL (0.6-1.0) Estimated GFR (Cockcroft-Gault) 71.5 71.5 Glucose Level 135mg/dL (70-99) 123mg/dL (70-99) Calcium Level 9.9mg/dL (8.5-10.1) 10.0mg/dL (8.5-10.1) Prothrombin Time 12.8SEC (11.7-14.0) Prothromb Time International Ratio 1.0 (0.8-1.1) BUN/Creatinine Ratio 15 (6-20) Total Bilirubin 0.5mg/dL (0.2-1.0) Aspartate Amino Transf (AST/SGOT) 21U/L (15-37) Alanine Aminotransferase (ALT/SGPT) 22U/L (14-59) Alkaline Phosphatase 98U/L (46-116) Total Protein 7.2g/dL (6.4-8.2) Albumin 3.8g/dL (3.4-5.0) Albumin/Globulin Ratio 1.1 (1.0-1.7) Thyroid Stimulating Hormone (TSH) 1.329uIU/mL (0.358-3.74) Free Thyroxine 1.00ng/dL (0.76-1.46) Laboratory Tests Test 06/03/16 13:45 06/03/16 14:10 06/04/16 04:12 White Blood Count 16.4x10^3/uL (4.0-11.0) 11.0x10^3/uL (4.0-11.0) Red Blood Count 4.10x10^6/uL (3.50-5.40) 4.08x10^6/uL (3.50-5.40) Hemoglobin 13.6g/dL (12.0-15.5) 13.1g/dL (12.0-15.5) Hematocrit 40.1% (36.0-47.0) 40.0% (36.0-47.0) Mean Corpuscular Volume 98fL (79-100) 98fL (79-100) Mean Corpuscular Hemoglobin 33pg (25-35) 32pg (25-35) Mean Corpuscular Hemoglobin Concent 34g/dL (31-37) 33g/dL (31-37) Red Cell Distribution Width 14.0% (11.5-14.5) 13.8% (11.5-14.5) Platelet Count 175x10^3/uL (140-400) 207x10^3/uL (140-400) Neutrophils (%) (Auto) 85% (31-73) 71% (31-73) Lymphocytes (%) (Auto) 7% (24-48) 17% (24-48) Monocytes (%) (Auto) 7% (0-9) 11% (0-9) Eosinophils (%) (Auto) 0% (0-3) 0% (0-3) Basophils (%) (Auto) 1% (0-3) 1% (0-3) Neutrophils # (Auto) 13.9x10^3uL (1.8-7.7) 7.9x10^3uL (1.8-7.7) Lymphocytes # (Auto) 1.2x10^3/uL (1.0-4.8) 1.9x10^3/uL (1.0-4.8) Monocytes # (Auto) 1.2x10^3/uL (0.0-1.1) 1.2x10^3/uL (0.0-1.1) Eosinophils # (Auto) 0.0x10^3/uL (0.0-0.7) 0.0x10^3/uL (0.0-0.7) Basophils # (Auto) 0.1x10^3/uL (0.0-0.2) 0.1x10^3/uL (0.0-0.2) Segmented Neutrophils % 89% (35-66) Lymphocytes % 3% (24-48) Monocytes % 8% (0-10) Platelet Estimate Adequate (ADEQUATE) Large Platelets Occ Polychromasia Slight Hypochromasia Slight Ovalocytes Occ Sodium Level 143mmol/L (136-145) 144mmol/L (136-145) Potassium Level 4.8mmol/L (3.5-5.1) 4.1mmol/L (3.5-5.1) Chloride Level 106mmol/L (98-107) 107mmol/L (98-107) Carbon Dioxide Level 28mmol/L (21-32) 27mmol/L (21-32) Anion Gap 9 (6-14) 10 (6-14) Blood Urea Nitrogen 11mg/dL (7-20) 12mg/dL (7-20) Creatinine 0.8mg/dL (0.6-1.0) 0.8mg/dL (0.6-1.0) Estimated GFR (Cockcroft-Gault) 71.5 71.5 Glucose Level 135mg/dL (70-99) 123mg/dL (70-99) Calcium Level 9.9mg/dL (8.5-10.1) 10.0mg/dL (8.5-10.1) Prothrombin Time 12.8SEC (11.7-14.0) Prothromb Time International Ratio 1.0 (0.8-1.1) BUN/Creatinine Ratio 15 (6-20) Total Bilirubin 0.5mg/dL (0.2-1.0) Aspartate Amino Transf (AST/SGOT) 21U/L (15-37) Alanine Aminotransferase (ALT/SGPT) 22U/L (14-59) Alkaline Phosphatase 98U/L (46-116) Total Protein 7.2g/dL (6.4-8.2) Albumin 3.8g/dL (3.4-5.0) Albumin/Globulin Ratio 1.1 (1.0-1.7) Thyroid Stimulating Hormone (TSH) 1.329uIU/mL (0.358-3.74) Free Thyroxine 1.00ng/dL (0.76-1.46) Notes A and A RLE: effusion at knee, skin intact compartments soft no pain with PROM at ankle toes warm with cap refill, DP 1+ and symmetric Assessment and Plan Surgery tomorrow will be NWB x 6wks, anticipate placement MICKY MERLOS II, MD Jun 04, 2016 08:22
[2016-06-04] MEDS: ASPIRIN 325 MG TABLET PO SCH (08:35)
[2016-06-04] MEDS: LISINOPRIL 10 MG TABLET PO SCH (08:36)
[2016-06-04] MEDS: AMLODIPINE BESYLATE 5 MG TABLET PO SCH (08:36)
--- NOTE | 2016-06-04 09:09 | PDOC ---
PROGRESS NOTES Subjective Subjective Patient continues to report right leg pain. Denies any chest pain, shortness of breath or palpitations. denies syncope. Objective Objective Vital Signs Date Time Temp Pulse Resp B/P Pulse Ox O2 Delivery O2 Flow Rate FiO2 06/04/16 08:36 110 140/61 06/04/16 07:00 98.2 18 90 Room Air 98.2 Intake and Output 06/04/16 07:00 Intake Total 900 ml Output Total 0 ml Balance 900 ml Intake Oral 900 ml Output Urine Total 0 ml Physical Exam Physical Exam Patient is tachycardic in the 100s, otherwise unchanged cardiac exam. Lungs clear to auscultation. Patient continues to be in mild distress secondary to pain. Assessment Assessment 66 year old female admitted for fractured tibia and near syncopal event with planned surgery tomorrow. Problems Medical Problems: (1) Closed fracture of right tibial plateau Status: Acute (2) Knee pain, right Status: Acute (3) Right knee pain Status: Acute Plan Plan of Care Will obtain an echocardiogram and continue to monitor. Thank you for the consultation. Comment Review of Relevant I have reviewed the following items althea (where applicable) has been applied. Labs Laboratory Tests Test 06/03/16 13:45 06/03/16 14:10 06/04/16 04:12 White Blood Count 16.4x10^3/uL (4.0-11.0) 11.0x10^3/uL (4.0-11.0) Red Blood Count 4.10x10^6/uL (3.50-5.40) 4.08x10^6/uL (3.50-5.40) Hemoglobin 13.6g/dL (12.0-15.5) 13.1g/dL (12.0-15.5) Hematocrit 40.1% (36.0-47.0) 40.0% (36.0-47.0) Mean Corpuscular Volume 98fL (79-100) 98fL (79-100) Mean Corpuscular Hemoglobin 33pg (25-35) 32pg (25-35) Mean Corpuscular Hemoglobin Concent 34g/dL (31-37) 33g/dL (31-37) Red Cell Distribution Width 14.0% (11.5-14.5) 13.8% (11.5-14.5) Platelet Count 175x10^3/uL (140-400) 207x10^3/uL (140-400) Neutrophils (%) (Auto) 85% (31-73) 71% (31-73) Lymphocytes (%) (Auto) 7% (24-48) 17% (24-48) Monocytes (%) (Auto) 7% (0-9) 11% (0-9) Eosinophils (%) (Auto) 0% (0-3) 0% (0-3) Basophils (%) (Auto) 1% (0-3) 1% (0-3) Neutrophils # (Auto) 13.9x10^3uL (1.8-7.7) 7.9x10^3uL (1.8-7.7) Lymphocytes # (Auto) 1.2x10^3/uL (1.0-4.8) 1.9x10^3/uL (1.0-4.8) Monocytes # (Auto) 1.2x10^3/uL (0.0-1.1) 1.2x10^3/uL (0.0-1.1) Eosinophils # (Auto) 0.0x10^3/uL (0.0-0.7) 0.0x10^3/uL (0.0-0.7) Basophils # (Auto) 0.1x10^3/uL (0.0-0.2) 0.1x10^3/uL (0.0-0.2) Segmented Neutrophils % 89% (35-66) Lymphocytes % 3% (24-48) Monocytes % 8% (0-10) Platelet Estimate Adequate (ADEQUATE) Large Platelets Occ Polychromasia Slight Hypochromasia Slight Ovalocytes Occ Sodium Level 143mmol/L (136-145) 144mmol/L (136-145) Potassium Level 4.8mmol/L (3.5-5.1) 4.1mmol/L (3.5-5.1) Chloride Level 106mmol/L (98-107) 107mmol/L (98-107) Carbon Dioxide Level 28mmol/L (21-32) 27mmol/L (21-32) Anion Gap 9 (6-14) 10 (6-14) Blood Urea Nitrogen 11mg/dL (7-20) 12mg/dL (7-20) Creatinine 0.8mg/dL (0.6-1.0) 0.8mg/dL (0.6-1.0) Estimated GFR (Cockcroft-Gault) 71.5 71.5 Glucose Level 135mg/dL (70-99) 123mg/dL (70-99) Calcium Level 9.9mg/dL (8.5-10.1) 10.0mg/dL (8.5-10.1) Prothrombin Time 12.8SEC (11.7-14.0) Prothromb Time International Ratio 1.0 (0.8-1.1) BUN/Creatinine Ratio 15 (6-20) Total Bilirubin 0.5mg/dL (0.2-1.0) Aspartate Amino Transf (AST/SGOT) 21U/L (15-37) Alanine Aminotransferase (ALT/SGPT) 22U/L (14-59) Alkaline Phosphatase 98U/L (46-116) Total Protein 7.2g/dL (6.4-8.2) Albumin 3.8g/dL (3.4-5.0) Albumin/Globulin Ratio 1.1 (1.0-1.7) Thyroid Stimulating Hormone (TSH) 1.329uIU/mL (0.358-3.74) Free Thyroxine 1.00ng/dL (0.76-1.46) Laboratory Tests Test 06/03/16 13:45 06/03/16 14:10 06/04/16 04:12 White Blood Count 16.4x10^3/uL (4.0-11.0) 11.0x10^3/uL (4.0-11.0) Red Blood Count 4.10x10^6/uL (3.50-5.40) 4.08x10^6/uL (3.50-5.40) Hemoglobin 13.6g/dL (12.0-15.5) 13.1g/dL (12.0-15.5) Hematocrit 40.1% (36.0-47.0) 40.0% (36.0-47.0) Mean Corpuscular Volume 98fL (79-100) 98fL (79-100) Mean Corpuscular Hemoglobin 33pg (25-35) 32pg (25-35) Mean Corpuscular Hemoglobin Concent 34g/dL (31-37) 33g/dL (31-37) Red Cell Distribution Width 14.0% (11.5-14.5) 13.8% (11.5-14.5) Platelet Count 175x10^3/uL (140-400) 207x10^3/uL (140-400) Neutrophils (%) (Auto) 85% (31-73) 71% (31-73) Lymphocytes (%) (Auto) 7% (24-48) 17% (24-48) Monocytes (%) (Auto) 7% (0-9) 11% (0-9) Eosinophils (%) (Auto) 0% (0-3) 0% (0-3) Basophils (%) (Auto) 1% (0-3) 1% (0-3) Neutrophils # (Auto) 13.9x10^3uL (1.8-7.7) 7.9x10^3uL (1.8-7.7) Lymphocytes # (Auto) 1.2x10^3/uL (1.0-4.8) 1.9x10^3/uL (1.0-4.8) Monocytes # (Auto) 1.2x10^3/uL (0.0-1.1) 1.2x10^3/uL (0.0-1.1) Eosinophils # (Auto) 0.0x10^3/uL (0.0-0.7) 0.0x10^3/uL (0.0-0.7) Basophils # (Auto) 0.1x10^3/uL (0.0-0.2) 0.1x10^3/uL (0.0-0.2) Segmented Neutrophils % 89% (35-66) Lymphocytes % 3% (24-48) Monocytes % 8% (0-10) Platelet Estimate Adequate (ADEQUATE) Large Platelets Occ Polychromasia Slight Hypochromasia Slight Ovalocytes Occ Sodium Level 143mmol/L (136-145) 144mmol/L (136-145) Potassium Level 4.8mmol/L (3.5-5.1) 4.1mmol/L (3.5-5.1) Chloride Level 106mmol/L (98-107) 107mmol/L (98-107) Carbon Dioxide Level 28mmol/L (21-32) 27mmol/L (21-32) Anion Gap 9 (6-14) 10 (6-14) Blood Urea Nitrogen 11mg/dL (7-20) 12mg/dL (7-20) Creatinine 0.8mg/dL (0.6-1.0) 0.8mg/dL (0.6-1.0) Estimated GFR (Cockcroft-Gault) 71.5 71.5 Glucose Level 135mg/dL (70-99) 123mg/dL (70-99) Calcium Level 9.9mg/dL (8.5-10.1) 10.0mg/dL (8.5-10.1) Prothrombin Time 12.8SEC (11.7-14.0) Prothromb Time International Ratio 1.0 (0.8-1.1) BUN/Creatinine Ratio 15 (6-20) Total Bilirubin 0.5mg/dL (0.2-1.0) Aspartate Amino Transf (AST/SGOT) 21U/L (15-37) Alanine Aminotransferase (ALT/SGPT) 22U/L (14-59) Alkaline Phosphatase 98U/L (46-116) Total Protein 7.2g/dL (6.4-8.2) Albumin 3.8g/dL (3.4-5.0) Albumin/Globulin Ratio 1.1 (1.0-1.7) Thyroid Stimulating Hormone (TSH) 1.329uIU/mL (0.358-3.74) Free Thyroxine 1.00ng/dL (0.76-1.46) Medications Current Medications Fentanyl Citrate (Fentanyl 2ml Vial) 50 mcg PRN Q2HR PRN IV PAIN Last administered on 06/04/16 03:16; Start 06/03/16 at 14:30; Stop 06/04/16 at 14:29 Acetaminophen (Tylenol) 650 mg PRN Q4HRS PRN PO FEVER; Start 06/03/16 at 14:30 ; Stop 06/04/16 at 14:29 Enoxaparin Sodium (Lovenox 40mg Syringe) 40 mg 1X ONCE SQ Last administered on 06/03/16 17:47; Start 06/03/16 at 18:00; Stop 06/03/16 at 18:01; Status DC Fentanyl Citrate (Fentanyl 2ml Vial) 50 mcg Q4HRS PRN IM SEVERE PAIN; Start at 17:30 Acetaminophen/ Hydrocodone Bitart (Lortab 5/325) 1 tab PRN Q4HRS PRN PO PAIN Last administered on 06/04/16 08:36; Start 06/03/16 at 17:30 Magnesium Hydroxide (Milk Of Magnesia) 2,400 mg PRN DAILY PRN PO CONSTIPATION; Start 06/03/16 at 17:30 Amlodipine Besylate (Norvasc) 5 mg DAILY PO Last administered on 06/04/16 08: 36; Start 06/04/16 at 09:00 Lisinopril (Prinivil) 10 mg DAILY PO Last administered on 06/04/16 08:36; Start 06/04/16 at 09:00 Acetaminophen (Tylenol) 650 mg Q4HRS PRN PO MILD PAIN / TEMP; Start 06/03/16 at 17:30 Aspirin (Elis Aspirin) 325 mg [id number] PO Last administered on 06/04/16 08: 35; Start 06/04/16 at 08:00 Zolpidem Tartrate (Ambien) 5 mg PRN QHS PRN PO INSOMNIA Last administered on 20:49; Start 06/03/16 at 17:45 Cyclobenzaprine HCl 10 mg 10 mg PRN TID PRN PO MUSCLE SPASMS Last administered on 06/03/16 20:49; Start 06/03/16 at 20:15 Cefazolin Sodium (Ancef 1gm Ivpb For Omni) 50 ml @ 100 mls/hr 1X ONCE IV ; Start 06/05/16 at 06:00; Stop 06/05/16 at 06:29 Active Scripts Active Reported Ambien (Zolpidem Tartrate) 5 Mg Tablet 1 Tab PO PRN QHS PRN Lisinopril 10 Mg Tablet 10 Mg PO HS Amlodipine Besylate 5 Mg Tablet 5 Mg PO HS Pravastatin Sodium 40 Mg Tablet 40 Mg PO HS Vitals/I & O Vital Sign - Last 24 Hours 06/03/16 06/03/16 06/03/16 06/03/16 12:25 13:22 13:34 14:00 Temp 97.8 97.8 Pulse 95 96 102 Resp 18 30 B/P 141/61 143/67 157/80 Pulse Ox 96 95 O2 Delivery Room Air Room Air Room Air 06/03/16 06/03/16 06/03/16 06/03/16 16:31 17:47 19:10 19:27 Temp 98.3 98.3 Pulse 119 Resp 18 B/P 174/74 Pulse Ox 92 95 O2 Delivery Room Air Room Air Room Air Room Air 06/03/16 06/03/16 06/04/16 06/04/16 20:00 23:10 01:03 02:43 Temp 98.3 98.3 Pulse 110 Resp 16 16 16 B/P 139/76 Pulse Ox 90 90 90 O2 Delivery Room Air Room Air Room Air Room Air 06/04/16 06/04/16 06/04/16 06/04/16 03:10 03:16 03:31 03:31 Temp 98.4 98.4 Pulse 106 Resp 18 16 16 16 B/P 129/57 Pulse Ox 90 90 90 90 O2 Delivery Room Air Room Air Room Air Room Air 06/04/16 06/04/16 06/04/16 07:00 08:36 08:36 Temp 98.2 98.2 Pulse 110 107 110 Resp 18 B/P 140/61 140/61 140/61 Pulse Ox 90 O2 Delivery Room Air Intake and Output 06/03/16 06/03/16 06/04/16 15:00 23:00 07:00 Intake Total 480 ml 420 ml Output Total 0 ml Balance 480 ml 420 ml KIRSTIE SOTO MD Jun 04, 2016 09:09
--- NOTE | 2016-06-04 10:27 | PDOC ---
PROGRESS NOTES Subjective Subjective complains of right knee pain. lab reviewed. wbc okay. cxr negative. Objective Objective Vital Signs Date Time Temp Pulse Resp B/P Pulse Ox O2 Delivery O2 Flow Rate FiO2 06/04/16 08:36 110 140/61 06/04/16 07:00 98.2 18 90 Room Air 98.2 Intake and Output 06/04/16 07:00 Intake Total 900 ml Output Total 0 ml Balance 900 ml Intake Oral 900 ml Output Urine Total 0 ml Physical Exam Abdomen: Soft Heart: Regular rate, Normal S1, Normal S2 Extremities: No edema, Other (right leg splint) General: Alert HEENT: Atraumatic Lungs: Clear to auscultation Neuro: Normal speech Psych/Mental Status: Mental status NL Skin: No rashes Assessment Assessment Problems Medical Problems:. Left tibial plateau fracture. 2. Near syncopal episode, most likely due to vasovagal depressor reaction 3. Hypertension. 4. Hyperlipidemia. 5. Peripheral arterial disease. 6. Leukocytosis resolved (1) Closed fracture of right tibial plateau Status: Acute (2) Knee pain, right Status: Acute (3) Right knee pain Status: Acute Plan Plan of Care d/c iv fentanyl iv morphine prn norco prn surgery tomorrow echocardiogram laxatives Comment Review of Relevant I have reviewed the following items althea (where applicable) has been applied. Labs Laboratory Tests Test 06/03/16 13:45 06/03/16 14:10 06/04/16 04:12 White Blood Count 16.4x10^3/uL (4.0-11.0) 11.0x10^3/uL (4.0-11.0) Red Blood Count 4.10x10^6/uL (3.50-5.40) 4.08x10^6/uL (3.50-5.40) Hemoglobin 13.6g/dL (12.0-15.5) 13.1g/dL (12.0-15.5) Hematocrit 40.1% (36.0-47.0) 40.0% (36.0-47.0) Mean Corpuscular Volume 98fL (79-100) 98fL (79-100) Mean Corpuscular Hemoglobin 33pg (25-35) 32pg (25-35) Mean Corpuscular Hemoglobin Concent 34g/dL (31-37) 33g/dL (31-37) Red Cell Distribution Width 14.0% (11.5-14.5) 13.8% (11.5-14.5) Platelet Count 175x10^3/uL (140-400) 207x10^3/uL (140-400) Neutrophils (%) (Auto) 85% (31-73) 71% (31-73) Lymphocytes (%) (Auto) 7% (24-48) 17% (24-48) Monocytes (%) (Auto) 7% (0-9) 11% (0-9) Eosinophils (%) (Auto) 0% (0-3) 0% (0-3) Basophils (%) (Auto) 1% (0-3) 1% (0-3) Neutrophils # (Auto) 13.9x10^3uL (1.8-7.7) 7.9x10^3uL (1.8-7.7) Lymphocytes # (Auto) 1.2x10^3/uL (1.0-4.8) 1.9x10^3/uL (1.0-4.8) Monocytes # (Auto) 1.2x10^3/uL (0.0-1.1) 1.2x10^3/uL (0.0-1.1) Eosinophils # (Auto) 0.0x10^3/uL (0.0-0.7) 0.0x10^3/uL (0.0-0.7) Basophils # (Auto) 0.1x10^3/uL (0.0-0.2) 0.1x10^3/uL (0.0-0.2) Segmented Neutrophils % 89% (35-66) Lymphocytes % 3% (24-48) Monocytes % 8% (0-10) Platelet Estimate Adequate (ADEQUATE) Large Platelets Occ Polychromasia Slight Hypochromasia Slight Ovalocytes Occ Sodium Level 143mmol/L (136-145) 144mmol/L (136-145) Potassium Level 4.8mmol/L (3.5-5.1) 4.1mmol/L (3.5-5.1) Chloride Level 106mmol/L (98-107) 107mmol/L (98-107) Carbon Dioxide Level 28mmol/L (21-32) 27mmol/L (21-32) Anion Gap 9 (6-14) 10 (6-14) Blood Urea Nitrogen 11mg/dL (7-20) 12mg/dL (7-20) Creatinine 0.8mg/dL (0.6-1.0) 0.8mg/dL (0.6-1.0) Estimated GFR (Cockcroft-Gault) 71.5 71.5 Glucose Level 135mg/dL (70-99) 123mg/dL (70-99) Calcium Level 9.9mg/dL (8.5-10.1) 10.0mg/dL (8.5-10.1) Prothrombin Time 12.8SEC (11.7-14.0) Prothromb Time International Ratio 1.0 (0.8-1.1) BUN/Creatinine Ratio 15 (6-20) Total Bilirubin 0.5mg/dL (0.2-1.0) Aspartate Amino Transf (AST/SGOT) 21U/L (15-37) Alanine Aminotransferase (ALT/SGPT) 22U/L (14-59) Alkaline Phosphatase 98U/L (46-116) Total Protein 7.2g/dL (6.4-8.2) Albumin 3.8g/dL (3.4-5.0) Albumin/Globulin Ratio 1.1 (1.0-1.7) Thyroid Stimulating Hormone (TSH) 1.329uIU/mL (0.358-3.74) Free Thyroxine 1.00ng/dL (0.76-1.46) Laboratory Tests Test 06/03/16 13:45 06/03/16 14:10 06/04/16 04:12 White Blood Count 16.4x10^3/uL (4.0-11.0) 11.0x10^3/uL (4.0-11.0) Red Blood Count 4.10x10^6/uL (3.50-5.40) 4.08x10^6/uL (3.50-5.40) Hemoglobin 13.6g/dL (12.0-15.5) 13.1g/dL (12.0-15.5) Hematocrit 40.1% (36.0-47.0) 40.0% (36.0-47.0) Mean Corpuscular Volume 98fL (79-100) 98fL (79-100) Mean Corpuscular Hemoglobin 33pg (25-35) 32pg (25-35) Mean Corpuscular Hemoglobin Concent 34g/dL (31-37) 33g/dL (31-37) Red Cell Distribution Width 14.0% (11.5-14.5) 13.8% (11.5-14.5) Platelet Count 175x10^3/uL (140-400) 207x10^3/uL (140-400) Neutrophils (%) (Auto) 85% (31-73) 71% (31-73) Lymphocytes (%) (Auto) 7% (24-48) 17% (24-48) Monocytes (%) (Auto) 7% (0-9) 11% (0-9) Eosinophils (%) (Auto) 0% (0-3) 0% (0-3) Basophils (%) (Auto) 1% (0-3) 1% (0-3) Neutrophils # (Auto) 13.9x10^3uL (1.8-7.7) 7.9x10^3uL (1.8-7.7) Lymphocytes # (Auto) 1.2x10^3/uL (1.0-4.8) 1.9x10^3/uL (1.0-4.8) Monocytes # (Auto) 1.2x10^3/uL (0.0-1.1) 1.2x10^3/uL (0.0-1.1) Eosinophils # (Auto) 0.0x10^3/uL (0.0-0.7) 0.0x10^3/uL (0.0-0.7) Basophils # (Auto) 0.1x10^3/uL (0.0-0.2) 0.1x10^3/uL (0.0-0.2) Segmented Neutrophils % 89% (35-66) Lymphocytes % 3% (24-48) Monocytes % 8% (0-10) Platelet Estimate Adequate (ADEQUATE) Large Platelets Occ Polychromasia Slight Hypochromasia Slight Ovalocytes Occ Sodium Level 143mmol/L (136-145) 144mmol/L (136-145) Potassium Level 4.8mmol/L (3.5-5.1) 4.1mmol/L (3.5-5.1) Chloride Level 106mmol/L (98-107) 107mmol/L (98-107) Carbon Dioxide Level 28mmol/L (21-32) 27mmol/L (21-32) Anion Gap 9 (6-14) 10 (6-14) Blood Urea Nitrogen 11mg/dL (7-20) 12mg/dL (7-20) Creatinine 0.8mg/dL (0.6-1.0) 0.8mg/dL (0.6-1.0) Estimated GFR (Cockcroft-Gault) 71.5 71.5 Glucose Level 135mg/dL (70-99) 123mg/dL (70-99) Calcium Level 9.9mg/dL (8.5-10.1) 10.0mg/dL (8.5-10.1) Prothrombin Time 12.8SEC (11.7-14.0) Prothromb Time International Ratio 1.0 (0.8-1.1) BUN/Creatinine Ratio 15 (6-20) Total Bilirubin 0.5mg/dL (0.2-1.0) Aspartate Amino Transf (AST/SGOT) 21U/L (15-37) Alanine Aminotransferase (ALT/SGPT) 22U/L (14-59) Alkaline Phosphatase 98U/L (46-116) Total Protein 7.2g/dL (6.4-8.2) Albumin 3.8g/dL (3.4-5.0) Albumin/Globulin Ratio 1.1 (1.0-1.7) Thyroid Stimulating Hormone (TSH) 1.329uIU/mL (0.358-3.74) Free Thyroxine 1.00ng/dL (0.76-1.46) Medications Current Medications Fentanyl Citrate (Fentanyl 2ml Vial) 50 mcg PRN Q2HR PRN IV PAIN Last administered on 06/04/16t 03:16; Start 06/03/16 at 14:30; Stop 06/04/16 at 14:29 Acetaminophen (Tylenol) 650 mg PRN Q4HRS PRN PO FEVER; Start 06/03/16 at 14:30 ; Stop 06/04/16 at 14:29 Enoxaparin Sodium (Lovenox 40mg Syringe) 40 mg 1X ONCE SQ Last administered on 06/03/16 17:47; Start 06/03/16 at 18:00; Stop 06/03/16 at 18:01; Status DC Fentanyl Citrate (Fentanyl 2ml Vial) 50 mcg Q4HRS PRN IM SEVERE PAIN; Start at 17:30 Acetaminophen/ Hydrocodone Bitart (Lortab 5/325) 1 tab PRN Q4HRS PRN PO PAIN Last administered on 06/04/16 08:36; Start 06/03/16 at 17:30 Magnesium Hydroxide (Milk Of Magnesia) 2,400 mg PRN DAILY PRN PO CONSTIPATION; Start 06/03/16 at 17:30 Amlodipine Besylate (Norvasc) 5 mg DAILY PO Last administered on 06/04/16 08: 36; Start 06/04/16 at 09:00 Lisinopril (Prinivil) 10 mg DAILY PO Last administered on 06/04/16 08:36; Start 06/04/16 at 09:00 Acetaminophen (Tylenol) 650 mg Q4HRS PRN PO MILD PAIN / TEMP; Start 06/03/16 at 17:30 Aspirin (Elis Aspirin) 325 mg DAILYWBKFT PO Last administered on 06/04/16 08: 35; Start 06/04/16 at 08:00 Zolpidem Tartrate (Ambien) 5 mg PRN QHS PRN PO INSOMNIA Last administered on 20:49; Start 06/03/16 at 17:45 Cyclobenzaprine HCl 10 mg 10 mg PRN TID PRN PO MUSCLE SPASMS Last administered on 06/03/16 20:49; Start 06/03/16 at 20:15 Cefazolin Sodium (Ancef 1gm Ivpb For Omni) 50 ml @ 100 mls/hr 1X ONCE IV ; Start 06/05/16 at 06:00; Stop 06/05/16 at 06:29 Active Scripts Active Reported Ambien (Zolpidem Tartrate) 5 Mg Tablet 1 Tab PO PRN QHS PRN Lisinopril 10 Mg Tablet 10 Mg PO HS Amlodipine Besylate 5 Mg Tablet 5 Mg PO HS Pravastatin Sodium 40 Mg Tablet 40 Mg PO HS Vitals/I & O Vital Sign - Last 24 Hours 06/03/16 06/03/16 06/03/16 06/03/16 12:25 13:22 13:34 14:00 Temp 97.8 97.8 Pulse 95 96 102 Resp 18 30 B/P 141/61 143/67 157/80 Pulse Ox 96 95 O2 Delivery Room Air Room Air Room Air 06/03/16 06/03/16 06/03/16 06/03/16 16:31 17:47 19:10 19:27 Temp 98.3 98.3 Pulse 119 Resp 18 B/P 174/74 Pulse Ox 92 95 O2 Delivery Room Air Room Air Room Air Room Air 06/03/16 06/03/16 06/04/16 06/04/16 20:00 23:10 01:03 02:43 Temp 98.3 98.3 Pulse 110 Resp 16 16 16 B/P 139/76 Pulse Ox 90 90 90 O2 Delivery Room Air Room Air Room Air Room Air 06/04/16 06/04/16 06/04/16 06/04/16 03:10 03:16 03:31 03:31 Temp 98.4 98.4 Pulse 106 Resp 18 16 16 16 B/P 129/57 Pulse Ox 90 90 90 90 O2 Delivery Room Air Room Air Room Air Room Air 06/04/16 06/04/16 06/04/16 07:00 08:36 08:36 Temp 98.2 98.2 Pulse 110 107 110 Resp 18 B/P 140/61 140/61 140/61 Pulse Ox 90 O2 Delivery Room Air Intake and Output 06/03/16 06/03/16 06/04/16 15:00 23:00 07:00 Intake Total 480 ml 420 ml Output Total 0 ml Balance 480 ml 420 ml SEDRICK CLEMONS MD Jun 04, 2016 10:27
[2016-06-04] MEDS ORDERED: MORPHINE SULFATE 4 MG/ML DISP.SYRIN. IV PRN (10:30)
[2016-06-04 10:49] LABS: BILIRUBIN,URINE NEGATIVE (NEG); GLUCOSE,URINE NEGATIVE (NEG); NITRITE,URINE NEGATIVE (NEG); PH,URINE 7.5; PROTEIN,URINE NEGATIVE (NEG-TRACE)
[2016-06-04 11:00] VITALS: BP 147/64
[2016-06-04 11:09] LABS: BACTERIA,URINE 0 /HPF (0-FEW); RBC,URINE 0 /HPF (0-2); WBC,URINE 0 /HPF (0-4)
[2016-06-04] MEDS: MORPHINE SULFATE 2 MG/ML DISP.SYRIN. IV PRN (11:23)
[2016-06-04] MEDS: POLYETHYLENE GLYCOL 3350 17 GM PACKET. PO SCH (13:49)
[2016-06-04 15:00] VITALS: BP 128/66
[2016-06-04 19:00] VITALS: BP 120/50
--- NOTE | 2016-06-04 20:04 | ACF ---
Admission Forms Criteria MUSCULOSKELETAL DISEASE GRG Clinical Indications for Admission to Inpatient Care (Place 'X' for any and all applicable criteria): Hospital admission is needed for appropriate care of the patient because of ANY ONE of the following: [X]I. Fracture, dislocation, or other musculoskeletal injury requiring inpatient care(medical) as indicated by ANY ONE of the following(4)(5)(6)(7) [ ]a) Vertebral fracture requiring observation for instability or neurologic compromise (8) [ ]b) Compartment syndrome (proven or cannot be ruled out during observation level of care) (9) [ ]c) Limb-threatening injury [ ]d) Major injury requiring inpatient stabilization such as traction initiation or external fixation before internal fixation or closure of complex or open fracture [ ]e) Major injury requiring inpatient treatment after emergency or observation level care (as appropriate) [X]f) Severe pain requiring acute inpatient management [ ]II. Newly diagnosed or suspected bone, joint, or orthopedic device infection (e.g., osteomyelitis, septic arthritis) needing ANY ONE of the following(1)(2)(3) [ ]a) IV antibiotics that cannot be initiated in other than inpatient setting (e.g., patient too unstable or home infusion not available) [ ]b) Device removal or replacement [ ]c) Bone or soft tissue debridement [ ]d) Joint drainage (drain placement or repetitive aspirations) [ ]III. Severe rheumatologic disease (e.g., systemic lupus erythematosus, rheumatoid arthritis) with complications or comorbidities (Also use Optimal Recovery Care Criteria or General Recovery Criteria as appropriate on the basis of predominant condition), including ANY ONE of the following(10 )(11)(12)(13) [ ]a) Severe infection (e.g., [employer] infection, sepsis) (14) [ ]b) Respiratory complications, including ANY ONE of the following: [ ]i) Pleural effusion with respiratory compromise [ ]ii) Pulmonary hypertension with congestive failure [ ]iii) Respiratory failure [ ]iv) Pulmonary hemorrhage (15) [ ]c) Hematologic disease, including ANY ONE of the following: [ ]i) Coagulopathy with bleeding [ ]ii) Thrombosis with hypercoagulable state [ ]iii) Thrombotic thrombocytopenic purpura [ ]d) Cerebritis with seizures, psychosis, or other severe abnormalities [ ]e) Vertebral destruction with monitoring needed for cervical myelopathy& possible respiratory compromise [ ]f) Exacerbation that requires inpatient treatment (e.g., intravenous immunosuppression) (16) [ ]g) Acute renal failure [ ]IV. Severe vasculitis with complications or comorbidities (Also use Optimal Recovery Care Criteria or General Recovery Criteria as appropriate on the basis of predominant condition), including ANY ONE of the following(11)(12)(17)(18)(19)(20) [ ]a) [employer] vasculitis with seizures, psychosis, or other severe abnormalities (22) [ ]b) Renal failure (16) [ ]c) Pulmonary hemorrhage (15) [ ]d) Cerebral infarction [ ]e) Gastrointestinal ischemia [ ]f) Gangrene or threatened amputation [ ]g) Exacerbation that requires inpatient treatment (e.g., intravenous immunosuppression) (19)(21) [ ]V. Severe myopathy as indicated by ANY ONE of the following (28)(29) [ ]a) New onset of airway compromise or inability to swallow [ ]b) Respiratory deterioration with observation needed for impending respiratory failure [ ]c) Exacerbation that requires inpatient treatment (e.g., intravenous immunosuppression) [ ]. Severe gout (crystal arthropathy) as indicated by ANY ONE of the following (23)(24) [ ]a) Severe pain requiring acute inpatient management [ ]b) Exacerbation that requires inpatient treatment (e.g., intravenous treatment) [ ]VII.Rhabdomyolysis and ANY ONE of the following (25)(26)(27) [ ]a) Acute renal failure [ ]b) Need for intravenous hydration after emergency or observation level care (as appropriate) [ ]c) Inability to maintain oral hydration [ ]d) Change in mental status [ ]e) Electrolyte abnormality that remains after emergency or observation level care (as appropriate) [ ]VIII Post amputation complication, as indicated by ANY ONE of the following [ ]a) Infection [ ]b) Dehiscence [ ]c) Myodesis failure [ ]IX. Severe pain requiring acute inpatient management as indicated by ALL of the following (30)(31)(32) [ ]a) Continuous or frequent (e.g., every 2 to 4 hrs) parenteral analgesics required [A] [ ]b) Rapid improvement expected from treatment or acute intervention ( e.g., surgery, anesthesia procedure[B] [ ]X. Musculoskeletal Disease and ALL of the following: [ ]a) Symptom or finding for which emergency and observation care have failed or are not considered appropriate (Use General Criteria: Observation Care as appropriate) [ ]b) Presence of ANY ONE of the following [ ]i) A General Admission Criteria [ ]ii) A Pediatric General Admission Criteria The original [facility] content created by [facility] has been revised. The portions of the content which have been revised are identified through the use of italic text or in bold, and [facility] has neither reviewed nor approved the modified material. All other unmodified content is copyright [facility]. Please see references footnoted in the original [facility] edition 2016 Admission Criteria Met?: Yes ELMIRA MERCEDES Jun 04, 2016 20:04
--- NOTE | 2016-06-04 20:11 | CARD ---
APPROVED REPORT EXAM: Two-dimensional and M-mode echocardiogram with Doppler and color Doppler. Other Information Quality : LimitedHR: 109bpm Rhythm : Tachycardia INDICATION Near syncope RISK FACTORS Smoking 2D DIMENSIONS Left Atrium(2D)2.8 (1.6-4.0cm)IVSd0.8 (0.7-1.1cm) Aortic Root(2D)2.4 (2.0-3.7cm)LVDd3.1 (3.9-5.9cm) LVOT Diameter2.2 (1.8-2.4cm)PWd0.7 (0.7-1.1cm) LVDs1.9 (2.5-4.0cm)FS (%) 40.2 % SV28.0 mlLVEF(%)70.0 (>50%) Aortic Valve AoV Peak Tanmay.160.3cm/sAoV VTI31.9cm AO Peak GR.10.3mmHgLVOT Peak Tanmay.130.3cm/s AO Mean GR.7mmHgAVA (VMAX)2.97cm2 Mitral Valve MV E Wtgvykev156.2cm/sMV E Peak Gr.13mmHg MV DECEL [id number] A Rksccedc007.2cm/s MV E Mean Gr.5mmHgE/A Ratio0.5 MV A [id number] Pulmonary Valve PV Peak Olbopzqb464.5cm/s Pulmonary Vein S1 Ijlpuxhu30.9cm/sD2 Xabgrmad62.6cm/s PVa [id number] LEFT VENTRICLE The left ventricle cavity is small. There is normal left ventricular wall thickness. The Ejection Fra ction is 70%. There is normal LV segmental wall motion. Transmitral Doppler flow pattern is Grade I-a bnormal relaxation pattern. RIGHT VENTRICLE The right ventricle is normal size. There is normal right ventricular wall thickness. The right ventr icular systolic function is normal. ATRIA The left atrium size is normal. The right atrium size is normal. The interatrial septum is intact wit h no evidence for an atrial septal defect or patent foramen ovale as noted on 2-D or Doppler imaging. AORTIC VALVE The aortic valve is not well visualized. Doppler and Color Flow revealed no significant aortic regurg itation. There is no significant aortic valvular stenosis. MITRAL VALVE The mitral valve is not well visualized. There is no evidence of mitral valve prolapse. There is no m itral valve stenosis. Doppler and Color Flow revealed no mitral valve regurgitation noted. TRICUSPID VALVE The tricuspid valve is normal in structure and function. Doppler and Color Flow revealed no tricuspid valve regurgitation noted. There is no tricuspid valve prolapse or vegetation. There is no tricuspid valve stenosis. PULMONIC VALVE The pulmonary valve is normal in structure and function. Doppler and Color Flow revealed no pulmonic valvular regurgitation. There is no pulmonic valvular stenosis. GREAT VESSELS The aortic root is normal in size. The ascending aorta is normal in size. The pulmonary artery is nor mal. The IVC is normal in size and collapses >50% with inspiration. PERICARDIAL EFFUSION There is no evidence of significant pericardial effusion. Critical Notification Critical Value: No <Conclusion> The LV Ejection Fraction is 70%. Transmitral Doppler flow pattern is Grade I-abnormal relaxation pattern. The left atrium size is normal. The right atrium size is normal. The aortic valve is not well visualized. The mitral valve is not well visualized. The tricuspid valve is normal in structure and function. The pulmonary valve is normal in structure and function. There is no evidence of significant pericardial effusion.
[2016-06-04] MEDS: SENNOSIDES/DOCUSATE 8.6/50MG TABLET. PO SCH (20:20)
[2016-06-04 23:00] VITALS: BP 162/60
[2016-06-05] VITALS (8 sets, daily range): BP systolic 114–152; BP diastolic 54–79
[2016-06-05] MEDS: MORPHINE SULFATE 2 MG/ML DISP.SYRIN. IV PRN ×3 (02:55→20:44)
[2016-06-05] MEDS ORDERED: CEFAZOLIN 1GM IVPB FOR OMNI 50 ML IV ONE (06:00)
[2016-06-05] MEDS ORDERED: PROCHLORPERAZINE 10 MG/2 ML VIAL. IV PRN (07:00)
[2016-06-05] MEDS ORDERED: HYDROMORPHONE 2 MG/ML VIAL. IV PRN (07:00)
[2016-06-05] MEDS ORDERED: IV RINGERS,LACTATED 1000ML 1,000 ML IV SCH (07:00)
[2016-06-05] MEDS ORDERED: LIDOCAINE 1% 1 ML SYRINGE. ID PRN (07:00)
[2016-06-05] MEDS ORDERED: FENTANYL PF 100 MCG/2 ML VIAL. IV PRN ×2 (07:00)
[2016-06-05] MEDS ORDERED: MORPHINE SULFATE 2 MG/ML DISP.SYRIN. IV PRN (07:00)
[2016-06-05] MEDS ORDERED: ONDANSETRON PF 4 MG/2 ML VIAL. IV PRN (07:00)
[2016-06-05] MEDS: ASPIRIN 325 MG TABLET PO SCH (08:00)
[2016-06-05] MEDS: POLYETHYLENE GLYCOL 3350 17 GM PACKET. PO SCH (08:52)
[2016-06-05] MEDS: AMLODIPINE BESYLATE 5 MG TABLET PO SCH (08:52)
[2016-06-05] MEDS: LISINOPRIL 10 MG TABLET PO SCH (08:52)
--- NOTE | 2016-06-05 10:14 | PDOC ---
PROGRESS NOTES Subjective Subjective some pain. surgery this afternoon. discussed that she will be NWB RLE for 6 weeks and concurs with MARH screen after surgery. lab reviewed. echo showed preserved LVEF with grade 1 LV diastolic dysfunction. Objective Objective Vital Signs Date Time Temp Pulse Resp B/P Pulse Ox O2 Delivery O2 Flow Rate FiO2 06/05/16 08:52 107 146/64 06/05/16 07:00 98.0 18 93 Room Air 98.0 Intake and Output 06/05/16 07:00 Intake Total 795 ml Output Total 650 ml Balance 145 ml Intake Oral 795 ml Output Urine Total 650 ml # Voids 3 Physical Exam Abdomen: Soft Heart: Regular rate, Normal S1, Normal S2 Extremities: No edema, Other (right leg splint) General: Alert HEENT: Atraumatic Lungs: Clear to auscultation Neck: Supple Neuro: Normal speech Psych/Mental Status: Mental status NL Skin: No rashes Assessment Assessment Problems Medical Problems: (1) Closed fracture of right tibial plateau Status: Acute (2) Knee pain, right Status: Acute (3) Right knee pain Status: Acute Plan Plan of Care surgery today analgesics PT and OT after surgery MARH screen after surgery Comment Review of Relevant I have reviewed the following items althea (where applicable) has been applied. Labs Laboratory Tests Test 06/03/16 13:45 06/03/16 14:10 06/03/16 17:40 06/04/16 04:12 White Blood Count 16.4x10^3/uL (4.0-11.0) 11.0x10^3/uL (4.0-11.0) Red Blood Count 4.10x10^6/uL (3.50-5.40) 4.08x10^6/uL (3.50-5.40) Hemoglobin 13.6g/dL (12.0-15.5) 13.1g/dL (12.0-15.5) Hematocrit 40.1% (36.0-47.0) 40.0% (36.0-47.0) Mean Corpuscular Volume 98fL (79-100) 98fL (79-100) Mean Corpuscular Hemoglobin 33pg (25-35) 32pg (25-35) Mean Corpuscular Hemoglobin Concent 34g/dL (31-37) 33g/dL (31-37) Red Cell Distribution Width 14.0% (11.5-14.5) 13.8% (11.5-14.5) Platelet Count 175x10^3/uL (140-400) 207x10^3/uL (140-400) Neutrophils (%) (Auto) 85% (31-73) 71% (31-73) Lymphocytes (%) (Auto) 7% (24-48) 17% (24-48) Monocytes (%) (Auto) 7% (0-9) 11% (0-9) Eosinophils (%) (Auto) 0% (0-3) 0% (0-3) Basophils (%) (Auto) 1% (0-3) 1% (0-3) Neutrophils # (Auto) 13.9x10^3uL (1.8-7.7) 7.9x10^3uL (1.8-7.7) Lymphocytes # (Auto) 1.2x10^3/uL (1.0-4.8) 1.9x10^3/uL (1.0-4.8) Monocytes # (Auto) 1.2x10^3/uL (0.0-1.1) 1.2x10^3/uL (0.0-1.1) Eosinophils # (Auto) 0.0x10^3/uL (0.0-0.7) 0.0x10^3/uL (0.0-0.7) Basophils # (Auto) 0.1x10^3/uL (0.0-0.2) 0.1x10^3/uL (0.0-0.2) Segmented Neutrophils % 89% (35-66) Lymphocytes % 3% (24-48) Monocytes % 8% (0-10) Platelet Estimate Adequate (ADEQUATE) Large Platelets Occ Polychromasia Slight Hypochromasia Slight Ovalocytes Occ Sodium Level 143mmol/L (136-145) 144mmol/L (136-145) Potassium Level 4.8mmol/L (3.5-5.1) 4.1mmol/L (3.5-5.1) Chloride Level 106mmol/L (98-107) 107mmol/L (98-107) Carbon Dioxide Level 28mmol/L (21-32) 27mmol/L (21-32) Anion Gap 9 (6-14) 10 (6-14) Blood Urea Nitrogen 11mg/dL (7-20) 12mg/dL (7-20) Creatinine 0.8mg/dL (0.6-1.0) 0.8mg/dL (0.6-1.0) Estimated GFR (Cockcroft-Gault) 71.5 71.5 Glucose Level 135mg/dL (70-99) 123mg/dL (70-99) Calcium Level 9.9mg/dL (8.5-10.1) 10.0mg/dL (8.5-10.1) Urine Collection Type U cath Urine Color Pat Urine Clarity Clear Urine pH 7.5 Urine Specific [place] 1.020 Urine Protein Negativemg/dL (NEG-TRACE) Urine Glucose (UA) Negativemg/dL (NEG) Urine Ketones (Stick) Negativemg/dL (NEG) Urine Blood Negative (NEG) Urine Nitrite Negative (NEG) Urine Bilirubin Negative (NEG) Urine Urobilinogen Dipstick 1.0mg/dL (0.2 mg/dL) Urine Leukocyte Esterase Negative (NEG) Urine RBC 0/HPF (0-2) Urine WBC 0/HPF (0-4) Urine Bacteria 0/HPF (0-FEW) Urine Hyaline Casts Few/HPF Prothrombin Time 12.8SEC (11.7-14.0) Prothromb Time International Ratio 1.0 (0.8-1.1) BUN/Creatinine Ratio 15 (6-20) Total Bilirubin 0.5mg/dL (0.2-1.0) Aspartate Amino Transf (AST/SGOT) 21U/L (15-37) Alanine Aminotransferase (ALT/SGPT) 22U/L (14-59) Alkaline Phosphatase 98U/L (46-116) Total Protein 7.2g/dL (6.4-8.2) Albumin 3.8g/dL (3.4-5.0) Albumin/Globulin Ratio 1.1 (1.0-1.7) Thyroid Stimulating Hormone (TSH) 1.329uIU/mL (0.358-3.74) Free Thyroxine 1.00ng/dL (0.76-1.46) Medications Current Medications Fentanyl Citrate (Fentanyl 2ml Vial) 50 mcg PRN Q2HR PRN IV PAIN Last administered on 06/04/16 03:16; Start 06/03/16 at 14:30; Stop 06/04/16 at 14:29 ; Status DC Acetaminophen (Tylenol) 650 mg PRN Q4HRS PRN PO FEVER; Start 06/03/16 at 14:30 ; Stop 06/04/16 at 14:29; Status DC Enoxaparin Sodium (Lovenox 40mg Syringe) 40 mg 1X ONCE SQ Last administered on 06/03/16 17:47; Start 06/03/16 at 18:00; Stop 06/03/16 at 18:01; Status DC Fentanyl Citrate (Fentanyl 2ml Vial) 50 mcg Q4HRS PRN IM SEVERE PAIN; Start at 17:30; Stop 06/04/16 at 10:31; Status DC Acetaminophen/ Hydrocodone Bitart (Lortab 5/325) 1 tab PRN Q4HRS PRN PO PAIN Last administered on 06/04/16 20:23; Start 06/03/16 at 17:30 Magnesium Hydroxide (Milk Of Magnesia) 2,400 mg PRN DAILY PRN PO CONSTIPATION; Start 06/03/16 at 17:30 Amlodipine Besylate (Norvasc) 5 mg DAILY PO Last administered on 06/05/16 08:52 ; Start 06/04/16 at 09:00 Lisinopril (Prinivil) 10 mg DAILY PO Last administered on 06/05/16 08:52; Start 06/04/16 at 09:00 Acetaminophen (Tylenol) 650 mg Q4HRS PRN PO MILD PAIN / TEMP; Start 06/03/16 at 17:30 Aspirin (Elis Aspirin) 325 mg DAILYWBKFT PO Last administered on 06/04/16 08: 35; Start 06/04/16 at 08:00 Zolpidem Tartrate (Ambien) 5 mg PRN QHS PRN PO INSOMNIA Last administered on 20:49; Start 06/03/16 at 17:45 Cyclobenzaprine HCl 10 mg 10 mg PRN TID PRN PO MUSCLE SPASMS Last administered on 06/03/16 20:49; Start 06/03/16 at 20:15 Cefazolin Sodium (Ancef 1gm Ivpb For Omni) 50 ml @ 100 mls/hr 1X ONCE IV ; Start 06/05/16 at 06:00; Stop 06/05/16 at 06:29; Status DC Morphine Sulfate 2 mg PRN Q4HRS PRN IV PAIN Last administered on 06/05/16 06:45 ; Start 06/04/16 at 10:30 Morphine Sulfate 4 mg PRN Q4HRS PRN IV PAIN; Start 06/04/16 at 10:30 Senna/Docusate Sodium (Senna Plus) 2 tab QHS PO Last administered on 06/04/16 20:20; Start 06/04/16 at 21:00 Polyethylene Glycol (miraLAX PACKET) 17 gm DAILY PO Last administered on 13:49; Start 06/04/16 at 12:00 Ondansetron HCl (Zofran) 4 mg PRN Q6HRS PRN IV Nausea; Start 06/05/16 at 07:00; Stop 06/06/16 at 06:59 Fentanyl Citrate (Fentanyl 2ml Vial) 25 mcg PRN Q5MIN PRN IV MILD PAIN; Start 06/05/16 at 07:00; Stop 06/06/16 at 06:59 Fentanyl Citrate (Fentanyl 2ml Vial) 50 mcg PRN Q5MIN PRN IV MODERATE PAIN; Start 06/05/16 at 07:00; Stop 06/06/16 at 06:59 Morphine Sulfate 1 mg 1 mg PRN Q10MIN PRN IV SEVERE PAIN; Start 06/05/16 at 07: 00; Stop 06/06/16 at 06:59 Lactated Ringer's (Iv Lactated Ringers) 1,000 ml @ 0 mls/hr Q0M IV ; Start 06/05 at 07:00; Stop 06/05/16 at 18:59 Lidocaine HCl 2 ml 1X PRN PRN ID IV START; Start 06/05/16 at 07:00; Stop at 06:59 Hydromorphone HCl (Dilaudid) 0.5 mg PRN Q10MIN PRN IV SEVERE PAIN, Second choice; Start 06/05/16 at 07:00; Stop 06/06/16 at 06:59 Prochlorperazine Edisylate (Compazine) 5 mg PACU PRN PRN IV NAUSEA; Start at 07:00; Stop 06/06/16 at 06:59 Active Scripts Active Reported Ambien (Zolpidem Tartrate) 5 Mg Tablet 1 Tab PO PRN QHS PRN Lisinopril 10 Mg Tablet 10 Mg PO HS Amlodipine Besylate 5 Mg Tablet 5 Mg PO HS Pravastatin Sodium 40 Mg Tablet 40 Mg PO HS Vitals/I & O Vital Sign - Last 24 Hours 06/04/16 06/04/16 06/04/16 06/04/16 11:00 15:00 19:00 20:23 Temp 98.8 98.3 98.1 98.8 98.3 98.1 Pulse 99 100 104 Resp 18 B/P 147/64 128/66 120/50 Pulse Ox 87 91 95 O2 Delivery Room Air Room Air Room Air Room Air 06/04/16 06/04/16 06/05/16 06/05/16 21:23 23:00 02:55 03:02 Temp 97.5 97.6 97.5 97.6 Pulse 100 105 Resp 18 B/P 162/60 114/59 Pulse Ox 91 95 O2 Delivery Room Air Room Air Room Air Room Air 06/05/16 06/05/16 06/05/16 06/05/16 03:25 06:45 07:00 08:52 Temp 98.0 98.0 Pulse 107 107 Resp 18 B/P 146/64 146/64 Pulse Ox 93 O2 Delivery Room Air Room Air Room Air 06/05/16 08:52 Pulse 107 B/P 146/64 Intake and Output 06/04/16 06/04/16 06/05/16 15:00 23:00 07:00 Intake Total 75 ml 720 ml 0 ml Output Total 650 ml Balance 75 ml 70 ml 0 ml SEDRICK CLEMONS MD Jun 05, 2016 10:14
--- NOTE | 2016-06-05 12:27 | PDOC ---
BRIEF OPERATIVE NOTE Date: Jun 05, 2016 Pre-Op Diagnosis Closed R lateral tibial plateau fracture Post-Op Diagnosis same Procedure Performed ORIF R tibial plateau Surgeon Darek Manager [employer] [place] Anesthesiologist [place] Anesthesia Type: General Blood Loss 50mL Complications none MICKY MERLOS II, MD Jun 05, 2016 12:27
[2016-06-05] MEDS: IV RINGERS,LACTATED 1000ML 1,000 ML IV SCH (12:36)
[2016-06-05] MEDS ORDERED: FENTANYL PF 250 MCG/5 ML VIAL. ONE (13:10)
[2016-06-05] MEDS ORDERED: LIDOCAINE 2% 100 MG/5 ML DISP.SYRIN. ONE ×2 (13:15)
[2016-06-05] MEDS ORDERED: ONDANSETRON PF 4 MG/2 ML VIAL. ONE (13:15)
[2016-06-05] MEDS ORDERED: DEXAMETHASONE SOD PHOS 20 MG/5 ML VIAL. ONE (13:15)
[2016-06-05] MEDS ORDERED: PROPOFOL 20 ML IV ONE (13:15)
[2016-06-05] MEDS ORDERED: PHENYLEPHRINE in 0.9% NACL PF 1 MG/10 ML DISP.SYRIN. IV ONE (13:23)
[2016-06-05] MEDS ORDERED: SEVOFLURANE > 120 MINUTES. IH ONE (13:23)
[2016-06-05] MEDS ORDERED: BUPIVACAINE MPF 0.5% 30 ML VIAL. ONE (13:35)
[2016-06-05] MEDS ORDERED: LIDOCAINE 1% PF 30 ML VIAL. ONE (13:35)
--- NOTE | 2016-06-05 14:24 | PDOC ---
PROGRESS NOTES Subjective Subjective Pt had the surgery earlier today and tolerated it well. No cardiac issues. Objective Objective Vital Signs Date Time Temp Pulse Resp B/P Pulse Ox O2 Delivery O2 Flow Rate FiO2 06/05/16 12:17 99.4 110 18 146/67 95 Nasal Cannula 2 99.4 Intake and Output 06/05/16 07:00 Intake Total 795 ml Output Total 650 ml Balance 145 ml Intake Oral 795 ml Output Urine Total 650 ml # Voids 3 Physical Exam Physical Exam Assessment Assessment Pt stable cardiac ortiz. Will sign off unless further cardiac problems develop. Thank you. Problems Medical Problems: (1) Closed fracture of right tibial plateau Status: Acute (2) Knee pain, right Status: Acute (3) Right knee pain Status: Acute Comment Review of Relevant I have reviewed the following items althea (where applicable) has been applied. Labs Laboratory Tests Test 06/03/16 17:40 06/04/16 04:12 Urine Collection Type U cath Urine Color Pat Urine Clarity Clear Urine pH 7.5 Urine Specific [place] 1.020 Urine Protein Negativemg/dL (NEG-TRACE) Urine Glucose (UA) Negativemg/dL (NEG) Urine Ketones (Stick) Negativemg/dL (NEG) Urine Blood Negative (NEG) Urine Nitrite Negative (NEG) Urine Bilirubin Negative (NEG) Urine Urobilinogen Dipstick 1.0mg/dL (0.2 mg/dL) Urine Leukocyte Esterase Negative (NEG) Urine RBC 0/HPF (0-2) Urine WBC 0/HPF (0-4) Urine Bacteria 0/HPF (0-FEW) Urine Hyaline Casts Few/HPF White Blood Count 11.0x10^3/uL (4.0-11.0) Red Blood Count 4.08x10^6/uL (3.50-5.40) Hemoglobin 13.1g/dL (12.0-15.5) Hematocrit 40.0% (36.0-47.0) Mean Corpuscular Volume 98fL (79-100) Mean Corpuscular Hemoglobin 32pg (25-35) Mean Corpuscular Hemoglobin Concent 33g/dL (31-37) Red Cell Distribution Width 13.8% (11.5-14.5) Platelet Count 207x10^3/uL (140-400) Neutrophils (%) (Auto) 71% (31-73) Lymphocytes (%) (Auto) 17% (24-48) Monocytes (%) (Auto) 11% (0-9) Eosinophils (%) (Auto) 0% (0-3) Basophils (%) (Auto) 1% (0-3) Neutrophils # (Auto) 7.9x10^3uL (1.8-7.7) Lymphocytes # (Auto) 1.9x10^3/uL (1.0-4.8) Monocytes # (Auto) 1.2x10^3/uL (0.0-1.1) Eosinophils # (Auto) 0.0x10^3/uL (0.0-0.7) Basophils # (Auto) 0.1x10^3/uL (0.0-0.2) Prothrombin Time 12.8SEC (11.7-14.0) Prothromb Time International Ratio 1.0 (0.8-1.1) Sodium Level 144mmol/L (136-145) Potassium Level 4.1mmol/L (3.5-5.1) Chloride Level 107mmol/L (98-107) Carbon Dioxide Level 27mmol/L (21-32) Anion Gap 10 (6-14) Blood Urea Nitrogen 12mg/dL (7-20) Creatinine 0.8mg/dL (0.6-1.0) Estimated GFR (Cockcroft-Gault) 71.5 BUN/Creatinine Ratio 15 (6-20) Glucose Level 123mg/dL (70-99) Calcium Level 10.0mg/dL (8.5-10.1) Total Bilirubin 0.5mg/dL (0.2-1.0) Aspartate Amino Transf (AST/SGOT) 21U/L (15-37) Alanine Aminotransferase (ALT/SGPT) 22U/L (14-59) Alkaline Phosphatase 98U/L (46-116) Total Protein 7.2g/dL (6.4-8.2) Albumin 3.8g/dL (3.4-5.0) Albumin/Globulin Ratio 1.1 (1.0-1.7) Thyroid Stimulating Hormone (TSH) 1.329uIU/mL (0.358-3.74) Free Thyroxine 1.00ng/dL (0.76-1.46) Medications Current Medications Fentanyl Citrate (Fentanyl 2ml Vial) 50 mcg PRN Q2HR PRN IV PAIN Last administered on 06/04/16 03:16; Start 06/03/16 at 14:30; Stop 06/04/16 at 14:29 ; Status DC Acetaminophen (Tylenol) 650 mg PRN Q4HRS PRN PO FEVER; Start 06/03/16 at 14:30 ; Stop 06/04/16 at 14:29; Status DC Enoxaparin Sodium (Lovenox 40mg Syringe) 40 mg 1X ONCE SQ Last administered on 06/03/16 17:47; Start 06/03/16 at 18:00; Stop 06/03/16 at 18:01; Status DC Fentanyl Citrate (Fentanyl 2ml Vial) 50 mcg Q4HRS PRN IM SEVERE PAIN; Start at 17:30; Stop 06/04/16 at 10:31; Status DC Acetaminophen/ Hydrocodone Bitart (Lortab 5/325) 1 tab PRN Q4HRS PRN PO PAIN Last administered on 06/04/16 20:23; Start 06/03/16 at 17:30 Magnesium Hydroxide (Milk Of Magnesia) 2,400 mg PRN DAILY PRN PO CONSTIPATION; Start 06/03/16 at 17:30 Amlodipine Besylate (Norvasc) 5 mg DAILY PO Last administered on 06/05/16 08:52 ; Start 06/04/16 at 09:00 Lisinopril (Prinivil) 10 mg DAILY PO Last administered on 06/05/16 08:52; Start 06/04/16 at 09:00 Acetaminophen (Tylenol) 650 mg Q4HRS PRN PO MILD PAIN / TEMP; Start 06/03/16 at 17:30 Aspirin (Elis Aspirin) 325 mg DAILYWBKFT PO Last administered on 06/04/16 08: 35; Start 06/04/16 at 08:00 Zolpidem Tartrate (Ambien) 5 mg PRN QHS PRN PO INSOMNIA Last administered on 20:49; Start 06/03/16 at 17:45 Cyclobenzaprine HCl 10 mg 10 mg PRN TID PRN PO MUSCLE SPASMS Last administered on 06/03/16 20:49; Start 06/03/16 at 20:15 Cefazolin Sodium (Ancef 1gm Ivpb For Omni) 50 ml @ 100 mls/hr 1X ONCE IV Last administered on 06/05/16 13:15; Start 06/05/16 at 06:00; Stop 06/05/16 at 06: 29; Status DC Morphine Sulfate 2 mg PRN Q4HRS PRN IV PAIN Last administered on 06/05/16 06:45 ; Start 06/04/16 at 10:30 Morphine Sulfate 4 mg PRN Q4HRS PRN IV PAIN; Start 06/04/16 at 10:30 Senna/Docusate Sodium (Senna Plus) 2 tab QHS PO Last administered on 06/04/16 20:20; Start 06/04/16 at 21:00 Polyethylene Glycol (miraLAX PACKET) 17 gm DAILY PO Last administered on 13:49; Start 06/04/16 at 12:00 Ondansetron HCl (Zofran) 4 mg PRN Q6HRS PRN IV Nausea; Start 06/05/16 at 07:00; Stop 06/06/16 at 06:59 Fentanyl Citrate (Fentanyl 2ml Vial) 25 mcg PRN Q5MIN PRN IV MILD PAIN; Start 06/05/16 at 07:00; Stop 06/06/16 at 06:59 Fentanyl Citrate (Fentanyl 2ml Vial) 50 mcg PRN Q5MIN PRN IV MODERATE PAIN; Start 06/05/16 at 07:00; Stop 06/06/16 at 06:59 Morphine Sulfate 1 mg 1 mg PRN Q10MIN PRN IV SEVERE PAIN; Start 06/05/16 at 07: 00; Stop 06/06/16 at 06:59 Lactated Ringer's (Iv Lactated Ringers) 1,000 ml @ 0 mls/hr Q0M IV ; Start 06/05 at 07:00; Stop 06/05/16 at 18:59 Lidocaine HCl 2 ml 1X PRN PRN ID IV START; Start 06/05/16 at 07:00; Stop at 06:59 Hydromorphone HCl (Dilaudid) 0.5 mg PRN Q10MIN PRN IV SEVERE PAIN, Second choice; Start 06/05/16 at 07:00; Stop 06/06/16 at 06:59 Prochlorperazine Edisylate (Compazine) 5 mg PACU PRN PRN IV NAUSEA; Start at 07:00; Stop 06/06/16 at 06:59 Warfarin Sodium 5 mg 5 mg 1X ONCE PO ; Start 06/05/16 at 17:00; Stop 06/05/16 at 17:01 Cefazolin Sodium/ Sodium Chloride (Ancef/Iv Sodium Chloride 0.9% 50ml) 50 ml @ 100 mls/hr Q6H IV ; Start 06/05/16 at 12:30; Stop 06/06/16 at 00:59; Status UNV Warfarin Sodium 1 each 1 each PRN DAILY PRN MC SEE COMMENTS; Start 06/05/16 at 12:30 Lactated Ringer's (Iv Lactated Ringers) 1,000 ml @ 75 mls/hr [id number] IV Last administered on 06/05/16t 12:36; Start 06/05/16 at 13:00 Fentanyl Citrate 250 mcg 250 mcg STK-MED ONCE .ROUTE ; Start 06/05/16 at 13:10; Stop 06/05/16 at 13:11; Status DC Propofol (Diprivan) 20 ml @ As Directed STK-MED ONCE IV ; Start 06/05/16 at 13:15 ; Stop 06/05/16 at 13:16; Status DC Ondansetron HCl (Zofran) 4 mg STK-MED ONCE .ROUTE ; Start 06/05/16 at 13:15; Stop 06/05/16 at 13:16; Status DC Dexamethasone Sodium Phosphate (Decadron) 20 mg STK-MED ONCE .ROUTE ; Start 06/05 at 13:15; Stop 06/05/16 at 13:16; Status DC Lidocaine HCl 100 mg STK-MED ONCE .ROUTE ; Start 06/05/16 at 13:15; Stop 06/05/16 at 13:16; Status DC Lidocaine HCl 100 mg STK-MED ONCE .ROUTE ; Start 06/05/16 at 13:15; Stop 06/05/16 at 13:16; Status DC Phenylephrine HCl 1 mg STK-MED ONCE IV ; Start 06/05/16 at 13:23; Stop 06/05/16 at 13:24; Status DC Sevoflurane (Ultane) 90 ml STK-MED ONCE IH ; Start 06/05/16 at 13:23; Stop at 13:24; Status DC Lidocaine HCl 30 ml STK-MED ONCE .ROUTE Last administered on 06/05/16 13:32; Start 06/05/16 at 13:35; Stop 06/05/16 at 13:36; Status DC Bupivacaine HCl (Sensorcaine Mpf 0.5%) 30 ml STK-MED ONCE .ROUTE Last administered on 06/05/16 13:32; Start 06/05/16 at 13:35; Stop 06/05/16 at 13:36; Status DC Active Scripts Active Reported Ambien (Zolpidem Tartrate) 5 Mg Tablet 1 Tab PO PRN QHS PRN Lisinopril 10 Mg Tablet 10 Mg PO HS Amlodipine Besylate 5 Mg Tablet 5 Mg PO HS Pravastatin Sodium 40 Mg Tablet 40 Mg PO HS Vitals/I & O Vital Sign - Last 24 Hours 06/04/16 06/04/16 06/04/16 06/04/16 15:00 19:00 20:23 21:23 Temp 98.3 98.1 98.3 98.1 Pulse 100 104 Resp 16 18 18 18 B/P 128/66 120/50 Pulse Ox 91 95 O2 Delivery Room Air Room Air Room Air Room Air 06/04/16 06/05/16 06/05/16 06/05/16 23:00 02:55 03:02 03:25 Temp 97.5 97.6 97.5 97.6 Pulse 100 105 Resp 18 16 18 18 B/P 162/60 114/59 Pulse Ox 91 95 O2 Delivery Room Air Room Air Room Air Room Air 06/05/16 06/05/16 06/05/16 06/05/16 06:45 07:00 08:52 08:52 Temp 98.0 98.0 Pulse 107 107 107 Resp 18 18 B/P 146/64 146/64 146/64 Pulse Ox 93 O2 Delivery Room Air Room Air 06/05/16 06/05/16 11:07 12:17 Temp 98.5 99.4 98.5 99.4 Pulse 113 110 Resp 16 18 B/P 121/61 146/67 Pulse Ox 91 95 O2 Delivery Room Air Nasal Cannula O2 Flow Rate 2 Intake and Output 06/04/16 06/04/16 06/05/16 15:00 23:00 07:00 Intake Total 75 ml 720 ml 0 ml Output Total 650 ml Balance 75 ml 70 ml 0 ml KIRSTIE SOTO MD Jun 05, 2016 14:24
[2016-06-05] MEDS ORDERED: NEOMY/BACITR/POLYMYXIN OINT PACKET. TP ONE (16:46)
[2016-06-05] MEDS ORDERED: WARFARIN 5 MG TABLET. PO ONE (17:00)
--- NOTE | 2016-06-05 20:17 | OP ---
DATE OF SURGERY: 06/05/2016 SURGEON: Blaze Merlos MD MANAGER TRUST: SUE Zamora ANESTHESIA: General. PREOPERATIVE DIAGNOSIS: Displaced closed right tibial plateau fracture with articular compression. POSTOPERATIVE DIAGNOSIS: Displaced closed right tibial plateau fracture with articular compression. PROCEDURE PERFORMED: ORIF closed right tibial plateau fracture. COMPLICATIONS: None. ESTIMATED BLOOD LOSS: 50 mL. TOURNIQUET TIME: 81 minutes. COMPONENTS INSERTED: 1. [employer]anegra [employer] locking lateral proximal tibial plate. 2. Norian bone graft from [employer]. REASON FOR PROCEDURE: The patient is a very pleasant female who tripped while she was running errands a couple days ago and suffered the above injury. I had seen her in consultation and we had discussion of risks, benefits, alternatives of proceeding with surgery. I discussed the rationale for surgery as well as possible short-term and long-term complications. She wished to proceed. DESCRIPTION OF PROCEDURE: The patient was greeted in the preoperative area by myself. Correct extremity was marked and verified. She was taken to the operative suite and antibiotics were started en route. Once in the OR, she was transferred gently supine on the OR table and had successful induction of general anesthesia. She was then secured to the bed with all pressure points padded. We then proceeded to prep and drape right lower extremity in usual sterile fashion after placing a nonsterile tourniquet to her right thigh. We then conducted a standard preoperative timeout. I then palpated marked surface anatomy and curtis on her skin with a skin marker for a curvilinear incision over proximal lateral tibial plateau. I then exsanguinated the extremity with an Esmarch and insufflated the tourniquet to 250 mmHg. After this, I incised skin with a scalpel through my planned incision, dissected subcutaneous tissue with electrocautery. I identified fascia and dissected this and incised in line with the skin incision with tenotomies. I then identified the tibialis anterior muscle and took it down subperiosteally with an elevator off the proximal tibia. I identified the fracture site and removed some interposed soft tissue with a small rongeur. I then palpated and felt for her joint line to make sure I was happy with my dissection. After this, I worked through the IT band distally and again using the tip of her [place] and C-arm, I performed a submeniscal arthrotomy. She had actually torn some of the capsule around this area, but I did complete and placed two tag stitches, #2 Ethibond, through my arthrotomy. I then focused my attention on the major fracture lines and using a [place] elevator, I hinged it open which allowed me to then place a self-retaining retractor to hinge the fracture open. I noted a very small debris that I then irrigated out. Some of this had contained articular cartilage, but these pieces were way too small to consider any type of fixation. There were four major depressed fragments and using a [place], I elevated those using the distal femur as a template. I then advanced a K-wire from lateral and then pulled it through the medial side of the knee to suspend these fragments in a reduced position. I then had another fragment that was still attached to the lateral cortex that I hinged open and I worked to elevate this and maintain it elevated with a K-wire as well. After this, I mixed and injected some of my bone graft to help through the void. I then provisionally pinned my plate into place confirming appropriate reduction and hardware position under biplanar fluoroscopy. After pinning my plate into place, I made a stab incision over proximal medial tibia and I used a large periarticular clamp to help compress the fracture. I was happy with the reduction. I was also happy with my plate position. I then proceeded to place screws to secure the plate to the shaft and then the locking screws proximally. After this, I removed the K-wires, after allowing the bone graft to harden. I then took my final pictures and was happy with the fracture reduction and plate position. I inspected the joint through my submeniscal arthrotomy and noted no extravasation of foreign material via direct visualization and palpation with the tip of the [place]. After this, I then let the tourniquet down and cauterized a couple of small bleeders. There was some generalized oozing and I elected to place a drain exiting through the incision. I then closed the fascia in a deep layer with combination of simple and [id number] 0 Vicryl. Inverted interrupted 2-0 was then used for subcutaneous tissue and 2-0 nylon in mattress fashion was used for skin as well as over the stab incision. After this, leg was cleansed and dried and sterile dressing was applied. The patient tolerated surgery well. No complications. Prior to completion of wound closure, all counts were reported correct x 2. After this, she was awakened and transferred gently supine to the recovery room cart and taken to PACU in stable and extubated condition. Postop plan is to start her on Coumadin. She will receive antibiotic prophylaxis as well as begin her rehabilitation. BLAZE MERLOS MD DR: JOHN/amanda JOB#: [id number] / [id number] FELICE
[2016-06-05] MEDS: ZOLPIDEM 5 MG TABLET. PO PRN (20:30)
[2016-06-05] MEDS: SENNOSIDES/DOCUSATE 8.6/50MG TABLET. PO SCH (20:30)
[2016-06-05] MEDS: CEFAZOLIN SODIUM 1 GM in IV NORMAL SALINE 50ML 50 ML IV SCH (20:31)
[2016-06-06] MEDS: CEFAZOLIN SODIUM 1 GM in IV NORMAL SALINE 50ML 50 ML IV SCH ×2 (01:25→06:20)
[2016-06-06] MEDS: IV RINGERS,LACTATED 1000ML 1,000 ML IV SCH (02:35)
[2016-06-06] MEDS: MORPHINE SULFATE 2 MG/ML DISP.SYRIN. IV PRN ×2 (02:41→19:53)
[2016-06-06 02:58] VITALS: BP 159/63
[2016-06-06] MEDS: HYDROCODONE/APAP 5/325MG TABLET. PO PRN (06:21)
[2016-06-06 07:00] VITALS: BP 133/63
--- NOTE | 2016-06-06 07:50 | PDOC ---
ORTHO PROGRESS NOTES Subjective c/o R knee pain, tolerable. No new abnormal sensations in RLE Vitals Vital Signs Date Time Temp Pulse Resp B/P Pulse Ox O2 Delivery O2 Flow Rate FiO2 06/06/16 07:41 Nasal Cannula 2.0 06/06/16 06:21 16 94 06/06/16 02:58 97.9 91 159/63 97.9 Labs Laboratory Tests Test 06/05/16 05:12 Hemoglobin A1c 4.5% (4.8-5.6) Notes A and A in bed HKB in place wiggles toes DP 1+, symmetric compartments soft, no pain with PROM Assessment and Plan NWB RLE PT/OT I anticipate that she will need placement Coumadin MICKY MERLOS II, MD Jun 06, 2016 07:50
[2016-06-06] MEDS: ASPIRIN 325 MG TABLET PO SCH (08:30)
[2016-06-06] MEDS: LISINOPRIL 10 MG TABLET PO SCH (08:30)
[2016-06-06] MEDS: POLYETHYLENE GLYCOL 3350 17 GM PACKET. PO SCH (08:31)
[2016-06-06] MEDS: AMLODIPINE BESYLATE 5 MG TABLET PO SCH (08:31)
[2016-06-06 11:00] VITALS: BP 110/47
--- NOTE | 2016-06-06 11:51 | PDOC ---
PROGRESS NOTES Subjective Subjective feels better. she concurs with ANT. discussed that she is NWB RLE for 6 weeks. lab reviewed. Objective Objective Vital Signs Date Time Temp Pulse Resp B/P Pulse Ox O2 Delivery O2 Flow Rate FiO2 06/06/16 11:00 98.0 102 18 110/47 93 Room Air 98.0 Intake and Output 06/06/16 07:00 Intake Total 2720 ml Output Total 1205 ml Balance 1515 ml Intake Oral 370 ml IV Total 2350 ml Output Urine Total 1150 ml Drainage Total 5 ml Estimated Blood Loss 50 ml # Voids 2 Physical Exam Abdomen: Soft Heart: Regular rate, Normal S1, Normal S2 Extremities: No edema, Other (dry dressing right knee. splint RLE) General: Alert HEENT: Atraumatic Lungs: Clear to auscultation Neuro: Normal speech Psych/Mental Status: Mental status NL Skin: No rashes Assessment Assessment Problems Medical Problems: ORIF right tibia plateau fracture hypertension hyperlipidemia PAD (1) Closed fracture of right tibial plateau Status: Acute (2) Knee pain, right Status: Acute (3) Right knee pain Status: Acute Plan Plan of Care PT and OT coumadin for dvt prophylaxis amlodipine and lisinopril. hold if systolic bp less than 110 analgesics prn senna-s and miralax [facility] screen Comment Review of Relevant I have reviewed the following items althea (where applicable) has been applied. Labs Laboratory Tests Test 06/05/16 05:12 Hemoglobin A1c 4.5% (4.8-5.6) Medications Current Medications Fentanyl Citrate (Fentanyl 2ml Vial) 50 mcg PRN Q2HR PRN IV PAIN Last administered on 06/04/16 03:16; Start 06/03/16 at 14:30; Stop 06/04/16 at 14:29 ; Status DC Acetaminophen (Tylenol) 650 mg PRN Q4HRS PRN PO FEVER; Start 06/03/16 at 14:30 ; Stop 06/04/16 at 14:29; Status DC Enoxaparin Sodium (Lovenox 40mg Syringe) 40 mg 1X ONCE SQ Last administered on 06/03/16 17:47; Start 06/03/16 at 18:00; Stop 06/03/16 at 18:01; Status DC Fentanyl Citrate (Fentanyl 2ml Vial) 50 mcg Q4HRS PRN IM SEVERE PAIN; Start at 17:30; Stop 06/04/16 at 10:31; Status DC Acetaminophen/ Hydrocodone Bitart (Lortab 5/325) 1 tab PRN Q4HRS PRN PO PAIN Last administered on 06/06/16 06:21; Start 06/03/16 at 17:30 Magnesium Hydroxide (Milk Of Magnesia) 2,400 mg PRN DAILY PRN PO CONSTIPATION; Start 06/03/16 at 17:30 Amlodipine Besylate (Norvasc) 5 mg DAILY PO Last administered on 06/06/16 08:31 ; Start 06/04/16 at 09:00 Lisinopril (Prinivil) 10 mg DAILY PO Last administered on 06/06/16 08:30; Start 06/04/16 at 09:00 Acetaminophen (Tylenol) 650 mg Q4HRS PRN PO MILD PAIN / TEMP; Start 06/03/16 at 17:30 Aspirin (Elis Aspirin) 325 mg DAILYWBKFT PO Last administered on 06/06/16 08: 30; Start 06/04/16 at 08:00 Zolpidem Tartrate (Ambien) 5 mg PRN QHS PRN PO INSOMNIA Last administered on 20:30; Start 06/03/16 at 17:45 Cyclobenzaprine HCl 10 mg 10 mg PRN TID PRN PO MUSCLE SPASMS Last administered on 06/03/16 20:49; Start 06/03/16 at 20:15 Cefazolin Sodium (Ancef 1gm Ivpb For Omni) 50 ml @ 100 mls/hr 1X ONCE IV Last administered on 06/05/16 13:15; Start 06/05/16 at 06:00; Stop 06/05/16 at 06: 29; Status DC Morphine Sulfate 2 mg PRN Q4HRS PRN IV PAIN Last administered on 06/06/16 02:41 ; Start 06/04/16 at 10:30 Morphine Sulfate 4 mg PRN Q4HRS PRN IV PAIN; Start 06/04/16 at 10:30 Senna/Docusate Sodium (Senna Plus) 2 tab QHS PO Last administered on 06/05/16 20:30; Start 06/04/16 at 21:00 Polyethylene Glycol (miraLAX PACKET) 17 gm DAILY PO Last administered on 08:31; Start 06/04/16 at 12:00 Ondansetron HCl (Zofran) 4 mg PRN Q6HRS PRN IV Nausea; Start 06/05/16 at 07:00; Stop 06/06/16 at 06:59; Status DC Fentanyl Citrate (Fentanyl 2ml Vial) 25 mcg PRN Q5MIN PRN IV MILD PAIN; Start 06/05/16 at 07:00; Stop 06/06/16 at 06:59; Status DC Fentanyl Citrate (Fentanyl 2ml Vial) 50 mcg PRN Q5MIN PRN IV MODERATE PAIN; Start 06/05/16 at 07:00; Stop 06/06/16 at 06:59; Status DC Morphine Sulfate 1 mg 1 mg PRN Q10MIN PRN IV SEVERE PAIN; Start 06/05/16 at 07: 00; Stop 06/06/16 at 06:59; Status DC Lactated Ringer's (Iv Lactated Ringers) 1,000 ml @ 0 mls/hr Q0M IV ; Start 06/05 at 07:00; Stop 06/05/16 at 18:59; Status DC Lidocaine HCl 2 ml 1X PRN PRN ID IV START; Start 06/05/16 at 07:00; Stop at 06:59; Status DC Hydromorphone HCl (Dilaudid) 0.5 mg PRN Q10MIN PRN IV SEVERE PAIN, Second choice; Start 06/05/16 at 07:00; Stop 06/06/16 at 06:59; Status DC Prochlorperazine Edisylate (Compazine) 5 mg PACU PRN PRN IV NAUSEA; Start at 07:00; Stop 06/06/16 at 06:59; Status DC Warfarin Sodium 5 mg 5 mg 1X ONCE PO Last administered on 06/05/16 17:37; Start 06/05/16 at 17:00; Stop 06/05/16 at 17:01; Status DC Cefazolin Sodium/ Sodium Chloride (Ancef/Iv Sodium Chloride 0.9% 50ml) 50 ml @ 100 mls/hr Q6H IV Last administered on 06/06/16 06:20; Start 06/05/16 at 19:00; Stop 06/06/16 at 07:29; Status DC Warfarin Sodium 1 each 1 each PRN DAILY PRN MC SEE COMMENTS; Start 06/05/16 at 12:30; Stop 06/06/16 at 10:48; Status DC Lactated Ringer's (Iv Lactated Ringers) 1,000 ml @ 75 mls/hr [id number] IV Last administered on 06/06/16 02:35; Start 06/05/16 at 13:00; Stop 06/06/16 at 11:45; Status DC Fentanyl Citrate 250 mcg 250 mcg STK-MED ONCE .ROUTE ; Start 06/05/16 at 13:10; Stop 06/05/16 at 13:11; Status DC Propofol (Diprivan) 20 ml @ As Directed STK-MED ONCE IV ; Start 06/05/16 at 13:15 ; Stop 06/05/16 at 13:16; Status DC Ondansetron HCl (Zofran) 4 mg STK-MED ONCE .ROUTE ; Start 06/05/16 at 13:15; Stop 06/05/16 at 13:16; Status DC Dexamethasone Sodium Phosphate (Decadron) 20 mg STK-MED ONCE .ROUTE ; Start 06/05 at 13:15; Stop 06/05/16 at 13:16; Status DC Lidocaine HCl 100 mg STK-MED ONCE .ROUTE ; Start 06/05/16 at 13:15; Stop 06/05/16 at 13:16; Status DC Lidocaine HCl 100 mg STK-MED ONCE .ROUTE ; Start 06/05/16 at 13:15; Stop 06/05/16 at 13:16; Status DC Phenylephrine HCl 1 mg STK-MED ONCE IV ; Start 06/05/16 at 13:23; Stop 06/05/16 at 13:24; Status DC Sevoflurane (Ultane) 90 ml STK-MED ONCE IH ; Start 06/05/16 at 13:23; Stop at 13:24; Status DC Lidocaine HCl 30 ml STK-MED ONCE .ROUTE Last administered on 06/05/16 13:32; Start 06/05/16 at 13:35; Stop 06/05/16 at 13:36; Status DC Bupivacaine HCl (Sensorcaine Mpf 0.5%) 30 ml STK-MED ONCE .ROUTE Last administered on 3/1/17at 13:32; Start 06/05/16 at 13:35; Stop 06/05/16 at 13:36; Status DC Neomycin/ Polymyxin/ Bacitracin (Triple Antibiotic Ointment) 1 pkt STK-MED ONCE TP ; Start 06/05/16 at 16:46; Stop 06/05/16 at 16:47; Status DC Warfarin Sodium (Coumadin Per Pharmacy) 1 each PRN DAILY PRN [facility] SEE COMMENTS; Start 06/06/16 at 11:00 Active Scripts Active Reported Ambien (Zolpidem Tartrate) 5 Mg Tablet 1 Tab PO PRN QHS PRN Lisinopril 10 Mg Tablet 10 Mg PO HS Amlodipine Besylate 5 Mg Tablet 5 Mg PO HS Pravastatin Sodium 40 Mg Tablet 40 Mg PO HS Vitals/I & O Vital Sign - Last 24 Hours 06/05/16 06/05/16 06/05/16 06/05/16 12:17 15:31 15:46 15:51 Temp 99.4 99.2 99.4 99.2 Pulse 110 110 94 Resp 18 14 16 B/P 146/67 131/51 144/60 Pulse Ox 95 95 98 O2 Delivery Nasal Cannula Simple Mask Room Air Nasal Cannula O2 Flow Rate 2 10 2 06/05/16 06/05/16 06/05/16 06/05/16 16:01 16:14 16:16 16:31 Temp 98.0 98.0 Pulse 113 106 108 Resp 20 20 20 B/P 155/69 156/65 158/58 Pulse Ox 99 92 96 O2 Delivery Nasal Cannula Nasal Cannula Nasal Cannula Nasal Cannula O2 Flow Rate 2 2 2 06/05/16 06/05/16 06/05/16 06/05/16 18:09 19:00 20:00 20:44 Temp 99.0 98.7 99.0 98.7 Pulse 108 119 116 Resp 18 20 16 B/P 152/69 135/67 136/66 129/68 136/79 122/69 Pulse Ox 92 92 O2 Delivery Nasal Cannula Room Air Nasal Cannula O2 Flow Rate 2.0 2.0 06/05/16 06/05/16 06/06/16 06/06/16 21:00 22:58 02:41 02:58 Temp 98.4 97.9 98.4 97.9 Pulse 108 107 91 Resp 18 16 18 B/P 136/64 135/54 159/63 Pulse Ox 95 95 94 O2 Delivery Nasal Cannula Nasal Cannula Nasal Cannula O2 Flow Rate 2.0 2.0 2.0 06/06/16 06/06/16 06/06/16 06/06/16 03:11 06:21 07:00 07:41 Temp 98.3 98.3 Pulse 85 Resp 16 16 16 B/P 133/63 Pulse Ox 94 94 94 O2 Delivery Nasal Cannula Nasal Cannula Nasal Cannula Nasal Cannula O2 Flow Rate 2.0 2.0 2.0 2.0 06/06/16 06/06/16 06/06/16 06/06/16 08:00 08:30 08:31 11:00 Temp 98.0 98.0 Pulse 85 85 102 Resp 18 B/P 133/63 133/63 110/47 Pulse Ox 93 O2 Delivery Nasal Cannula Room Air O2 Flow Rate 2.0 Intake and Output 06/05/16 06/05/16 06/06/16 15:00 23:00 07:00 Intake Total 50 ml 2570 ml 100 ml Output Total 355 ml 850 ml Balance 50 ml 2215 ml -750 ml SEDRICK CLEMONS MD Jun 06, 2016 11:51
[2016-06-06 12:41] LABS: INR 1.4 (0.8-1.1); PROTHROMBIN TIME PATIENT 16.7 SEC (11.7-14.0)
[2016-06-06 15:00] VITALS: BP 148/55
[2016-06-06] MEDS ORDERED: WARFARIN 4 MG TABLET. PO ONE (16:00)
[2016-06-06 19:10] VITALS: BP 140/57
[2016-06-06] MEDS: SENNOSIDES/DOCUSATE 8.6/50MG TABLET. PO SCH (19:52)
[2016-06-06] MEDS: ZOLPIDEM 5 MG TABLET. PO PRN (19:52)
[2016-06-06 23:21] VITALS: BP 119/52
[2016-06-07 03:14] VITALS: BP 143/52
[2016-06-07 04:36] LABS: BASO # 0.1 x10^3/uL (0.0-0.2); BASO % 1 % (0-3); EOS % 1 % (0-3); HEMATOCRIT 35.6 % (36.0-47.0); HEMOGLOBIN 12.1 g/dL (12.0-15.5); LYMPH % 24 % (24-48); MEAN CORPUSCULAR HEMOGLOBIN 33 pg (25-35); MEAN CORPUSCULAR HGB CONC 34 g/dL (31-37); MEAN CORPUSCULAR VOLUME 97 fL (79-100); MONO % 11 % (0-9); NEUT % 63 % (31-73); PLATELET COUNT 184 x10^3/uL (140-400); RED BLOOD COUNT 3.67 x10^6/uL (3.50-5.40); RED CELL DISTRIBUTION WIDTH 13.6 % (11.5-14.5); WHITE BLOOD COUNT 8.3 x10^3/uL (4.0-11.0)
[2016-06-07 04:46] LABS: INR 1.9 (0.8-1.1); PROTHROMBIN TIME PATIENT 20.7 SEC (11.7-14.0)
[2016-06-07 04:54] LABS: CALCIUM 9.2 mg/dL (8.5-10.1); CREATININE 0.6 mg/dL (0.6-1.0); GFR 99.7
[2016-06-07] MEDS: HYDROCODONE/APAP 5/325MG TABLET. PO PRN ×2 (05:24→16:38)
[2016-06-07 07:00] VITALS: BP 119/60
--- NOTE | 2016-06-07 09:01 | PDOC ---
ORTHO PROGRESS NOTES Subjective Her pain is doing okay. It does hurt when she moves her knee. Vitals Vital Signs Date Time Temp Pulse Resp B/P Pulse Ox O2 Delivery O2 Flow Rate FiO2 06/07/16 07:00 97.9 91 18 119/60 94 Room Air 97.9 06/07/16 06:24 2.0 Labs Laboratory Tests Test 06/06/16 11:50 06/07/16 04:05 Prothrombin Time 16.7SEC (11.7-14.0) 20.7SEC (11.7-14.0) Prothromb Time International Ratio 1.4 (0.8-1.1) 1.9 (0.8-1.1) White Blood Count 8.3x10^3/uL (4.0-11.0) Red Blood Count 3.67x10^6/uL (3.50-5.40) Hemoglobin 12.1g/dL (12.0-15.5) Hematocrit 35.6% (36.0-47.0) Mean Corpuscular Volume 97fL (79-100) Mean Corpuscular Hemoglobin 33pg (25-35) Mean Corpuscular Hemoglobin Concent 34g/dL (31-37) Red Cell Distribution Width 13.6% (11.5-14.5) Platelet Count 184x10^3/uL (140-400) Neutrophils (%) (Auto) 63% (31-73) Lymphocytes (%) (Auto) 24% (24-48) Monocytes (%) (Auto) 11% (0-9) Eosinophils (%) (Auto) 1% (0-3) Basophils (%) (Auto) 1% (0-3) Neutrophils # (Auto) 5.2x10^3uL (1.8-7.7) Lymphocytes # (Auto) 2.0x10^3/uL (1.0-4.8) Monocytes # (Auto) 0.9x10^3/uL (0.0-1.1) Eosinophils # (Auto) 0.1x10^3/uL (0.0-0.7) Basophils # (Auto) 0.1x10^3/uL (0.0-0.2) Sodium Level 145mmol/L (136-145) Potassium Level 4.0mmol/L (3.5-5.1) Chloride Level 108mmol/L (98-107) Carbon Dioxide Level 26mmol/L (21-32) Anion Gap 11 (6-14) Blood Urea Nitrogen 8mg/dL (7-20) Creatinine 0.6mg/dL (0.6-1.0) Estimated GFR (Cockcroft-Gault) 99.7 Glucose Level 103mg/dL (70-99) Calcium Level 9.2mg/dL (8.5-10.1) Laboratory Tests Test 06/06/16 11:50 06/07/16 04:05 Prothrombin Time 16.7SEC (11.7-14.0) 20.7SEC (11.7-14.0) Prothromb Time International Ratio 1.4 (0.8-1.1) 1.9 (0.8-1.1) White Blood Count 8.3x10^3/uL (4.0-11.0) Red Blood Count 3.67x10^6/uL (3.50-5.40) Hemoglobin 12.1g/dL (12.0-15.5) Hematocrit 35.6% (36.0-47.0) Mean Corpuscular Volume 97fL (79-100) Mean Corpuscular Hemoglobin 33pg (25-35) Mean Corpuscular Hemoglobin Concent 34g/dL (31-37) Red Cell Distribution Width 13.6% (11.5-14.5) Platelet Count 184x10^3/uL (140-400) Neutrophils (%) (Auto) 63% (31-73) Lymphocytes (%) (Auto) 24% (24-48) Monocytes (%) (Auto) 11% (0-9) Eosinophils (%) (Auto) 1% (0-3) Basophils (%) (Auto) 1% (0-3) Neutrophils # (Auto) 5.2x10^3uL (1.8-7.7) Lymphocytes # (Auto) 2.0x10^3/uL (1.0-4.8) Monocytes # (Auto) 0.9x10^3/uL (0.0-1.1) Eosinophils # (Auto) 0.1x10^3/uL (0.0-0.7) Basophils # (Auto) 0.1x10^3/uL (0.0-0.2) Sodium Level 145mmol/L (136-145) Potassium Level 4.0mmol/L (3.5-5.1) Chloride Level 108mmol/L (98-107) Carbon Dioxide Level 26mmol/L (21-32) Anion Gap 11 (6-14) Blood Urea Nitrogen 8mg/dL (7-20) Creatinine 0.6mg/dL (0.6-1.0) Estimated GFR (Cockcroft-Gault) 99.7 Glucose Level 103mg/dL (70-99) Calcium Level 9.2mg/dL (8.5-10.1) Notes She is awake and alert in bed. Examination reduction reveals the dressings are dry and intact. Neurovascular status is unchanged. Hinged knee brace is in place. Mild right knee effusion. Assessment and Plan Okay to transfer from my standpoint. She should remain nonweightbearing. Coumadin for anticoagulation. She should follow up with me in 10-12 days from today. MICKY MERLOS II, MD Jun 07, 2016 09:01
[2016-06-07] MEDS: LISINOPRIL 10 MG TABLET PO SCH (09:15)
[2016-06-07] MEDS: ASPIRIN 325 MG TABLET PO SCH (09:15)
[2016-06-07] MEDS: AMLODIPINE BESYLATE 5 MG TABLET PO SCH (09:16)
[2016-06-07] MEDS: POLYETHYLENE GLYCOL 3350 17 GM PACKET. PO SCH (09:16)
[2016-06-07 11:00] VITALS: BP 129/49
--- NOTE | 2016-06-07 11:00 | PDOC ---
PROGRESS NOTES Subjective Subjective feels better and wants to go to [facility].lab reviewed. Objective Objective Vital Signs Date Time Temp Pulse Resp B/P Pulse Ox O2 Delivery O2 Flow Rate FiO2 06/07/16 09:16 91 119/60 06/07/16 08:00 Room Air 06/07/16 07:00 97.9 18 94 97.9 06/07/16 06:24 2.0 Intake and Output 06/07/16 07:00 Intake Total 1195 ml Output Total 1900 ml Balance -705 ml Intake Oral 1195 ml Output Urine Total 1900 ml # Voids 1 Physical Exam Abdomen: Soft Heart: Regular rate, Normal S1, Normal S2 Extremities: No edema, Other (splint right knee) General: Alert HEENT: Atraumatic Lungs: Clear to auscultation Neuro: Normal speech Psych/Mental Status: Mental status NL Skin: No rashes Assessment Assessment Problems Medical Problems:ORIF right tibia plateau fracture hypertension hyperlipidemia PAD (1) Closed fracture of right tibial plateau Status: Acute (2) Knee pain, right Status: Acute (3) Right knee pain Status: Acute Plan Plan of Care [facility] screen and transfer today Comment Review of Relevant I have reviewed the following items althea (where applicable) has been applied. Labs Laboratory Tests Test 06/06/16 11:50 06/07/16 04:05 Prothrombin Time 16.7SEC (11.7-14.0) 20.7SEC (11.7-14.0) Prothromb Time International Ratio 1.4 (0.8-1.1) 1.9 (0.8-1.1) White Blood Count 8.3x10^3/uL (4.0-11.0) Red Blood Count 3.67x10^6/uL (3.50-5.40) Hemoglobin 12.1g/dL (12.0-15.5) Hematocrit 35.6% (36.0-47.0) Mean Corpuscular Volume 97fL (79-100) Mean Corpuscular Hemoglobin 33pg (25-35) Mean Corpuscular Hemoglobin Concent 34g/dL (31-37) Red Cell Distribution Width 13.6% (11.5-14.5) Platelet Count 184x10^3/uL (140-400) Neutrophils (%) (Auto) 63% (31-73) Lymphocytes (%) (Auto) 24% (24-48) Monocytes (%) (Auto) 11% (0-9) Eosinophils (%) (Auto) 1% (0-3) Basophils (%) (Auto) 1% (0-3) Neutrophils # (Auto) 5.2x10^3uL (1.8-7.7) Lymphocytes # (Auto) 2.0x10^3/uL (1.0-4.8) Monocytes # (Auto) 0.9x10^3/uL (0.0-1.1) Eosinophils # (Auto) 0.1x10^3/uL (0.0-0.7) Basophils # (Auto) 0.1x10^3/uL (0.0-0.2) Sodium Level 145mmol/L (136-145) Potassium Level 4.0mmol/L (3.5-5.1) Chloride Level 108mmol/L (98-107) Carbon Dioxide Level 26mmol/L (21-32) Anion Gap 11 (6-14) Blood Urea Nitrogen 8mg/dL (7-20) Creatinine 0.6mg/dL (0.6-1.0) Estimated GFR (Cockcroft-Gault) 99.7 Glucose Level 103mg/dL (70-99) Calcium Level 9.2mg/dL (8.5-10.1) Laboratory Tests Test 06/06/16 11:50 06/07/16 04:05 Prothrombin Time 16.7SEC (11.7-14.0) 20.7SEC (11.7-14.0) Prothromb Time International Ratio 1.4 (0.8-1.1) 1.9 (0.8-1.1) White Blood Count 8.3x10^3/uL (4.0-11.0) Red Blood Count 3.67x10^6/uL (3.50-5.40) Hemoglobin 12.1g/dL (12.0-15.5) Hematocrit 35.6% (36.0-47.0) Mean Corpuscular Volume 97fL (79-100) Mean Corpuscular Hemoglobin 33pg (25-35) Mean Corpuscular Hemoglobin Concent 34g/dL (31-37) Red Cell Distribution Width 13.6% (11.5-14.5) Platelet Count 184x10^3/uL (140-400) Neutrophils (%) (Auto) 63% (31-73) Lymphocytes (%) (Auto) 24% (24-48) Monocytes (%) (Auto) 11% (0-9) Eosinophils (%) (Auto) 1% (0-3) Basophils (%) (Auto) 1% (0-3) Neutrophils # (Auto) 5.2x10^3uL (1.8-7.7) Lymphocytes # (Auto) 2.0x10^3/uL (1.0-4.8) Monocytes # (Auto) 0.9x10^3/uL (0.0-1.1) Eosinophils # (Auto) 0.1x10^3/uL (0.0-0.7) Basophils # (Auto) 0.1x10^3/uL (0.0-0.2) Sodium Level 145mmol/L (136-145) Potassium Level 4.0mmol/L (3.5-5.1) Chloride Level 108mmol/L (98-107) Carbon Dioxide Level 26mmol/L (21-32) Anion Gap 11 (6-14) Blood Urea Nitrogen 8mg/dL (7-20) Creatinine 0.6mg/dL (0.6-1.0) Estimated GFR (Cockcroft-Gault) 99.7 Glucose Level 103mg/dL (70-99) Calcium Level 9.2mg/dL (8.5-10.1) Medications Current Medications Fentanyl Citrate (Fentanyl 2ml Vial) 50 mcg PRN Q2HR PRN IV PAIN Last administered on 06/04/16 03:16; Start 06/03/16 at 14:30; Stop 06/04/16 at 14:29 ; Status DC Acetaminophen (Tylenol) 650 mg PRN Q4HRS PRN PO FEVER; Start 06/03/16 at 14:30 ; Stop 06/04/16 at 14:29; Status DC Enoxaparin Sodium (Lovenox 40mg Syringe) 40 mg 1X ONCE SQ Last administered on 06/03/16 17:47; Start 06/03/16 at 18:00; Stop 06/03/16 at 18:01; Status DC Fentanyl Citrate (Fentanyl 2ml Vial) 50 mcg Q4HRS PRN IM SEVERE PAIN; Start at 17:30; Stop 06/04/16 at 10:31; Status DC Acetaminophen/ Hydrocodone Bitart (Lortab 5/325) 1 tab PRN Q4HRS PRN PO PAIN Last administered on 06/07/16 05:24; Start 06/03/16 at 17:30 Magnesium Hydroxide (Milk Of Magnesia) 2,400 mg PRN DAILY PRN PO CONSTIPATION; Start 06/03/16 at 17:30 Amlodipine Besylate (Norvasc) 5 mg DAILY PO Last administered on 06/07/16 09:16 ; Start 06/04/16 at 09:00 Lisinopril (Prinivil) 10 mg DAILY PO Last administered on 06/07/16 09:15; Start 06/04/16 at 09:00 Acetaminophen (Tylenol) 650 mg Q4HRS PRN PO MILD PAIN / TEMP; Start 06/03/16 at 17:30 Aspirin (Elis Aspirin) 325 mg DAILYWBKFT PO Last administered on 06/07/16 09: 15; Start 06/04/16 at 08:00 Zolpidem Tartrate (Ambien) 5 mg PRN QHS PRN PO INSOMNIA Last administered on 19:52; Start 06/03/16 at 17:45 Cyclobenzaprine HCl 10 mg 10 mg PRN TID PRN PO MUSCLE SPASMS Last administered on 06/03/16 20:49; Start 06/03/16 at 20:15 Cefazolin Sodium (Ancef 1gm Ivpb For Omni) 50 ml @ 100 mls/hr 1X ONCE IV Last administered on 06/05/16 13:15; Start 06/05/16 at 06:00; Stop 06/05/16 at 06: 29; Status DC Morphine Sulfate 2 mg PRN Q4HRS PRN IV PAIN Last administered on 06/06/16 19:53 ; Start 06/04/16 at 10:30 Morphine Sulfate 4 mg PRN Q4HRS PRN IV PAIN; Start 06/04/16 at 10:30 Senna/Docusate Sodium (Senna Plus) 2 tab QHS PO Last administered on 06/06/16 19:52; Start 06/04/16 at 21:00 Polyethylene Glycol (miraLAX PACKET) 17 gm DAILY PO Last administered on 09:16; Start 06/04/16 at 12:00 Ondansetron HCl (Zofran) 4 mg PRN Q6HRS PRN IV Nausea; Start 06/05/16 at 07:00; Stop 06/06/16 at 06:59; Status DC Fentanyl Citrate (Fentanyl 2ml Vial) 25 mcg PRN Q5MIN PRN IV MILD PAIN; Start 06/05/16 at 07:00; Stop 06/06/16 at 06:59; Status DC Fentanyl Citrate (Fentanyl 2ml Vial) 50 mcg PRN Q5MIN PRN IV MODERATE PAIN; Start 06/05/16 at 07:00; Stop 06/06/16 at 06:59; Status DC Morphine Sulfate 1 mg 1 mg PRN Q10MIN PRN IV SEVERE PAIN; Start 06/05/16 at 07: 00; Stop 06/06/16 at 06:59; Status DC Lactated Ringer's (Iv Lactated Ringers) 1,000 ml @ 0 mls/hr Q0M IV ; Start 06/05 at 07:00; Stop 06/05/16 at 18:59; Status DC Lidocaine HCl 2 ml 1X PRN PRN ID IV START; Start 06/05/16 at 07:00; Stop at 06:59; Status DC Hydromorphone HCl (Dilaudid) 0.5 mg PRN Q10MIN PRN IV SEVERE PAIN, Second choice; Start 06/05/16 at 07:00; Stop 06/06/16 at 06:59; Status DC Prochlorperazine Edisylate (Compazine) 5 mg PACU PRN PRN IV NAUSEA; Start at 07:00; Stop 06/06/16 at 06:59; Status DC Warfarin Sodium 5 mg 5 mg 1X ONCE PO Last administered on 06/05/16 17:37; Start 06/05/16 at 17:00; Stop 06/05/16 at 17:01; Status DC Cefazolin Sodium/ Sodium Chloride (Ancef/Iv Sodium Chloride 0.9% 50ml) 50 ml @ 100 mls/hr Q6H IV Last administered on 06/06/16 06:20; Start 06/05/16 at 19:00; Stop 06/06/16 at 07:29; Status DC Warfarin Sodium 1 each 1 each PRN DAILY PRN MC SEE COMMENTS; Start 06/05/16 at 12:30; Stop 06/06/16 at 10:48; Status DC Lactated Ringer's (Iv Lactated Ringers) 1,000 ml @ 75 mls/hr [id number] IV Last administered on 06/06/16 02:35; Start 06/05/16 at 13:00; Stop 06/06/16 at 11:45; Status DC Fentanyl Citrate 250 mcg 250 mcg STK-MED ONCE .ROUTE ; Start 06/05/16 at 13:10; Stop 06/05/16 at 13:11; Status DC Propofol (Diprivan) 20 ml @ As Directed STK-MED ONCE IV ; Start 06/05/16 at 13:15 ; Stop 06/05/16 at 13:16; Status DC Ondansetron HCl (Zofran) 4 mg STK-MED ONCE .ROUTE ; Start 06/05/16 at 13:15; Stop 06/05/16 at 13:16; Status DC Dexamethasone Sodium Phosphate (Decadron) 20 mg STK-MED ONCE .ROUTE ; Start 06/05 at 13:15; Stop 06/05/16 at 13:16; Status DC Lidocaine HCl 100 mg STK-MED ONCE .ROUTE ; Start 06/05/16 at 13:15; Stop 06/05/16 at 13:16; Status DC Lidocaine HCl 100 mg STK-MED ONCE .ROUTE ; Start 06/05/16 at 13:15; Stop 06/05/16 at 13:16; Status DC Phenylephrine HCl 1 mg STK-MED ONCE IV ; Start 06/05/16 at 13:23; Stop 06/05/16 at 13:24; Status DC Sevoflurane (Ultane) 90 ml STK-MED ONCE IH ; Start 06/05/16 at 13:23; Stop at 13:24; Status DC Lidocaine HCl 30 ml STK-MED ONCE .ROUTE Last administered on 06/05/16 13:32; Start 06/05/16 at 13:35; Stop 06/05/16 at 13:36; Status DC Bupivacaine HCl (Sensorcaine Mpf 0.5%) 30 ml STK-MED ONCE .ROUTE Last administered on 06/05/16 13:32; Start 06/05/16 at 13:35; Stop 06/05/16 at 13:36; Status DC Neomycin/ Polymyxin/ Bacitracin (Triple Antibiotic Ointment) 1 pkt STK-MED ONCE TP ; Start 06/05/16 at 16:46; Stop 06/05/16 at 16:47; Status DC Warfarin Sodium (Coumadin Per Pharmacy) 1 each PRN DAILY PRN [facility] SEE COMMENTS Last administered on 06/06/16 15:54; Start 06/06/16 at 11:00 Warfarin Sodium (Coumadin) 4 mg 1X ONCE PO Last administered on 06/06/16 16:41 ; Start 06/06/16 at 16:00; Stop 06/06/16 at 16:01; Status DC Active Scripts Active Reported Ambien (Zolpidem Tartrate) 5 Mg Tablet 1 Tab PO PRN QHS PRN Lisinopril 10 Mg Tablet 10 Mg PO HS Amlodipine Besylate 5 Mg Tablet 5 Mg PO HS Pravastatin Sodium 40 Mg Tablet 40 Mg PO HS Vitals/I & O Vital Sign - Last 24 Hours 06/06/16 06/06/16 06/06/16 06/06/16 11:00 15:00 19:10 19:53 Temp 98.0 98.5 97.7 98.0 98.5 97.7 Pulse 102 88 86 Resp 18 18 20 16 B/P 110/47 148/55 140/57 Pulse Ox 93 96 95 95 O2 Delivery Room Air Room Air Room Air Nasal Cannula O2 Flow Rate 2.0 06/06/16 06/06/16 06/06/16 06/07/16 20:00 20:23 23:21 03:14 Temp 99.2 99.0 99.2 99.0 Pulse 101 93 Resp 18 18 B/P 119/52 143/52 Pulse Ox 95 92 94 O2 Delivery Nasal Cannula Nasal Cannula Room Air Room Air O2 Flow Rate 2.0 2.0 06/07/16 06/07/16 06/07/16 06/07/16 05:24 06:24 07:00 08:00 Temp 97.9 97.9 Pulse 91 Resp 16 16 18 B/P 119/60 Pulse Ox 94 94 94 O2 Delivery Nasal Cannula Room Air Room Air O2 Flow Rate 2.0 3/3/17 3/3/17 09:15 09:16 Pulse 91 91 B/P 119/60 119/60 Intake and Output 06/06/16 06/06/16 06/07/16 15:00 23:00 07:00 Intake Total 1095 ml 100 ml Output Total 800 ml 1100 ml Balance -800 ml -5 ml 100 ml SEDRICK CLEMONS MD Jun 07, 2016 11:00
[2016-06-07 15:00] VITALS: BP 125/74
--- NOTE | 2016-06-07 15:02 | DISCH ---
DISCHARGE INSTRUCTIONS Condition on Discharge Condition on Discharge: Stable Activity After Discharge Activity Instructions for Disc: Resume previous activity Diet after Discharge Diet after Discharge: Regular Contacting the DRBrittany after DC Call your doctor for: If your condition worsens Follow-Up Follow up with: dr. clemons at [facility] SEDRICK CLEMONS MD Jun 07, 2016 15:02
--- NOTE | 2016-06-07 15:08 | PDOC ---
Provider Note Provider Note discharge summary dictated # [id number] SEDRICK CLEMONS MD Jun 07, 2016 15:08
[2016-06-07] MEDS ORDERED: WARFARIN 2 MG TABLET. PO SCH (16:00)
--- NOTE | 2016-06-10 10:02 | DS ---
DATE OF DISCHARGE: 06/07/2016 CONSULTANTS: Include Dr. Oswald and Dr. Yao. PROCEDURE: Open reduction and internal fixation of a closed ____ tibial plateau fracture. FINAL DIAGNOSES: 1. Displaced closed ____ tibial plateau fracture with articular compression due to a fall. 2. Near syncopal episode, most likely secondary to vasovagal depressive reaction. 3. Hypertension. 4. Hyperlipidemia. 5. Peripheral arterial disease. 6. Leukocytosis. HOSPITAL COURSE: The patient is a 66-year-old white female with history of hypertension, hyperlipidemia, peripheral arterial disease who was getting out of a truck and noted twisting in her ____ leg and developed pain in the ____ knee after she fell. She denied any head trauma or loss of consciousness. She apparently went to the [facility] Emergency Room and she had an x-ray of her leg for a suspected tibial plateau fracture and was sent home with a leg splint per her wishes. While she was getting out of the truck again, she fell and landed on her knee and had some flushing and dizziness and lightheadedness and near syncope at that time. The patient went back to the [facility] Emergency Room, where a CAT scan of the ____ leg showed that she had a comminuted intra-articular fracture involving the lateral tibial plateau of the ____ leg with a small joint effusion. The patient had an EKG and had an echocardiogram, the latter showed a preserved left ventricular ejection fraction with grade 1 diastolic dysfunction. She was seen by Dr. Yao in consultation who cleared her from a cardiac standpoint for surgery. The patient was then seen by Dr. Oswald and underwent an open reduction and internal fixation of the ____ tibial plateau fracture. She is nonweightbearing for 6 weeks on the ____ leg and the ____ leg is splinted. She was started on Coumadin and her INR today is 1.9. The patient's pain has been controlled with analgesics and her antihypertensive medication was continued. She received physical and occupational therapy. She will be dismissed to [facility] on Tylenol 650 mg every 4 hours p.r.n., amlodipine 5 mg every day, aspirin 325 mg every day, cyclobenzaprine 10 mg t.i.d. p.r.n. for muscle spasms, Holland 5/325 one every 4 hours p.r.n., lisinopril 10 mg every day, milk of magnesia every day p.r.n., MiraLax 17 g daily, Senokot-S 2 tablets at bedtime, Coumadin 2 mg every day and Ambien 5 mg at bedtime p.r.n., and again she is nonweightbearing to the ____ leg for 6 weeks. SEDRICK CLEMONS MD DR: FLEX/amanda JOB#: [id number] / [id number]
== END 2016-06-07 16:42 | disposition short-term general hospital (02) | DRG 493 ==
LOC: ER 12:21 → 4 NORTH 13:20
PROVIDERS: ADMIT Internal Medicine; ATTEND Internal Medicine
PROC: 0QSG04Z Reposition Right Tibia with Internal Fixation Device, Open Approach (ICD-10-PCS; principal; 2016-06-05 13:00)
DX: S82.141A Displaced bicondylar fracture of right tibia, initial encounter for closed fracture (principal); Z68.1 Body mass index [BMI] 19.9 or less, adult; D72.829 Elevated white blood cell count, unspecified; E78.00 Pure hypercholesterolemia, unspecified; E78.5 Hyperlipidemia, unspecified; F17.210 Nicotine dependence, cigarettes, uncomplicated; I10 Essential (primary) hypertension; I73.9 Peripheral vascular disease, unspecified; J44.9 Chronic obstructive pulmonary disease, unspecified; K21.9 Gastro-esophageal reflux disease without esophagitis; W01.0XXA Fall on same level from slipping, tripping and stumbling without subsequent striking against object, initial encounter; Z80.0 Family history of malignant neoplasm of digestive organs; Z90.710 Acquired absence of both cervix and uterus; Y93.89 Activity, other specified; Y92.89 Other specified places as the place of occurrence of the external cause; R63.6 Underweight
CPT/HCPCS: 29505; 36415; 71010; 73562; 73610; 73700; 76000; 80048; 80053; 81001; 83036; 84439; 84443; 85007; 85027; 85610; 90471; 90715; 93005; 93306; C1713; J0690; J1100; J1650; J2270; J2370; J2405; J2704; J3010; J3490; J7120; 97110; 97116; 97530; 97535; 99284-25; 99285-25

== ENCOUNTER → 2018-05-22 | Outpatient (CLI) | payer MEDICARE, OTHER ==
[~2018-05-22] MED LIST: AMLO5TAB10 PO; LISI10TA2 PO; PRAV40TA2 PO; ZOLP5TAB PO
--- NOTE | 2018-05-22 15:27 | KCIC ---
Bilateral lower extremity arterial Doppler ultrasound HISTORY: Peripheral artery disease. Claudication. TECHNIQUE: Color Doppler, grayscale and duplex analysis performed of the right and left lower extremity arterial structures, from the common femoral artery through the runoff vessels. All velocity measurements are in centimeters per second. Right leg: Biphasic waveforms are identified at the right common femoral artery, and the proximal and mid superficial femoral artery. There is occlusion of the right distal superficial femoral artery without evidence of internal flow. Adjacent collateral vessel is identified. Mild flow is identified within a narrowed and irregular popliteal artery. Right popliteal artery and runoff arteries demonstrate monophasic waveforms. Runoff artery velocities range from 17 through 31. Flow cannot be documented within the dorsalis pedis artery, compatible with occlusion. There is generalized atherosclerotic plaque. Left leg: Left common femoral artery velocity is 211. Proximal superficial femoral artery velocity is 132. Below this, velocities range from 35 through 100. There are biphasic waveforms throughout. Scattered generalized plaque. No evidence of occlusion or focal high-grade stenosis. IMPRESSION: 1. Generalized atherosclerotic changes, greater on the right. 2. 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 Limited flow identified within the right calf runoff arteries. Electronically signed by: Alli Hernadez MD (05/22/2018 3:24 PM) [id number]
== END | disposition home or self-care (01) ==
LOC: KCIC US 13:00
PROVIDERS: ATTEND Internal Medicine
DX: I70.293 Other atherosclerosis of native arteries of extremities, bilateral legs (principal); I74.3 Embolism and thrombosis of arteries of the lower extremities
CPT/HCPCS: 93925